=== PATIENT | female | born 1950 | race Two or more races ===

== ENCOUNTER 2017-12-19 22:08 | Inpatient (IN) | payer OTHER, MEDICAID ==
[~2017-12-19] VITALS: Ht 160 cm; Wt 140.3 kg
[2017-12-19 22:49] LABS: Basophils # (auto) 0 uL; Basophils % (auto) 0.5 % (0.0-2.0); Eosinophils # (auto) 0 uL; Eosinophils % (auto) 0.2 % (0.0-7.0); Hematocrit 36.5 % (36.0-46.0); Hemoglobin 11.8 g/dL (12.2-16.2); Lymphocytes # (auto) 0.2 uL; Lymphocytes % (auto) 3.8 % (10.0-50.0); Mean Corpuscular Hemoglobin 28.2 pg (28.0-32.0); Mean Corpuscular Hgb Conc. 32.3 g/dL (32.0-36.0); Mean Corpuscular Volume 87.3 fL (80.0-100.0); Monocytes # (auto) 0.6 uL; Monocytes % (auto) 8.6 % (0.0-12.0); Neutrophils # (auto) 5.6 uL; Neutrophils % (auto) 86.9 % (37.0-80.0); Platelet Count (auto) 173 10^3/uL (140-450); Red Blood Cells 4.18 10^6/uL (4.0-5.20); Red Cell Distribution Width 16.2 % (11.8-14.3); White Blood Cell 6.5 10^3/uL (4.4-10.8)
[2017-12-19 23:11] LABS: Alanine Aminotransferase 12 U/L (13-56); Albumin 3.3 g/dL (3.4-5.0); Anion Gap 8 (5-15); Aspartate Aminotransferase 15 U/L (15-37); Blood Urea Nitrogen 17 mg/dL (7-18); Calcium 8.7 mg/dL (8.5-10.1); Carbon Dioxide 30 mmol/L (21-32); Chloride 97 mmol/L (98-107); GFR African American 85 mL/min; GFR Non-African American 70 mL/min; Glucose 189 mg/dL (74-106); Magnesium 1.6 mg/dL (1.6-2.6); Potassium 3.7 mmol/L (3.5-5.1); Sodium 135 mmol/L (136-145)
[2017-12-19 23:16] LABS: Alkaline Phosphatase 104 U/L (45-117)
[2017-12-20] MEDS ORDERED: FUROSEMIDE 20 MG/2 ML VIAL IV ONE ×2 (00:45→04:45)
[2017-12-20 02:45] LABS: Urine WBC None Seen /hpf (0 - 5)
[2017-12-20 03:04] LABS: Urine Bacteria FEW /hpf (None Seen); Urine Blood Negative /uL (Negative); Urine Mucus FEW (None Seen); Urine Specific Gravity 1.011 (1.001-1.035)
[2017-12-20] MEDS ORDERED: IPRATROPIUM BROM 0.5 MG/2.5ML INH SOL NEB ONE (06:30)
[2017-12-20] MEDS ORDERED: methylPREDNISolone SOD SUCC 125 MG/2 ML VL IV ONE (06:30)
[2017-12-20] MEDS ORDERED: ONDANSETRON HCL 4 MG/2 ML VIAL IV PRN (06:30)
[2017-12-20] MEDS ORDERED: ACETAMINOPHEN 325 MG TAB PO PRN (06:30)
[2017-12-20] MEDS ORDERED: MORPHINE SULFATE 4 MG/ML SYR/VIAL IV PRN (06:30)
[2017-12-20] MEDS ORDERED: DEXTROSE (50%) 50ML SYRG IV PRN (06:30)
[2017-12-20] MEDS ORDERED: ALBUTEROL SULF 2.5 MG/0.5ML(0.5%) NEB SOLN NEB ONE (06:30)
[2017-12-20] MEDS ORDERED: NITROGLYCERIN 0.4 MG SL TAB SL PRN (06:30)
[2017-12-20] MEDS ORDERED: cefTRIAXone 1GM/10ml IVPUSH 10 ML IV ONE (07:30)
[2017-12-20] MEDS: LEVOTHYROXINE SODIUM 50 MCG TAB PO SCH (07:41)
[2017-12-20] MEDS: HYDROcodone-ACET 5/325MG TAB PO PRN ×2 (09:36→20:11)
[2017-12-20] MEDS: ENOXAPARIN SOD 40 MG/0.4 ML SYRINGE SC SCH (09:37)
[2017-12-20] MEDS: amLODIPine BESYLATE 5 MG TAB PO SCH (09:37)
[2017-12-20] MEDS: FAMOTIDINE 20 MG TAB PO SCH ×2 (09:37→22:33)
[2017-12-20] MEDS: METOPROLOL TARTRATE 50 MG TAB PO SCH ×2 (09:37→22:33)
[2017-12-20 09:39] VITALS: BP 137/93
[2017-12-20] MEDS: ACCU-CHEK COMFORT CURVE STRIP VI SCH ×3 (12:07→23:53)
[2017-12-20] MEDS: InsuLIN REG 1unit/0.01ml Soln (100units/ml) SC SCH ×3 (12:18→23:53)
[2017-12-20 13:00] VITALS: BP 133/64
[2017-12-20] MEDS ORDERED: LEVO150T10 PO (15:25)
[2017-12-20] MEDS ORDERED: BACL10TA PO (15:25)
[2017-12-20] MEDS ORDERED: FLUT250M2 IN (15:25)
[2017-12-20] MEDS ORDERED: HYDR-531 PO (15:25)
[2017-12-20] MEDS ORDERED: METO-158 PO (15:25)
[2017-12-20] MEDS ORDERED: NAS17NSL (15:25)
[2017-12-20] MEDS ORDERED: LEVO-28 PO (15:25)
[2017-12-20] MEDS ORDERED: INSLANTI SC (15:25)
[2017-12-20] MEDS ORDERED: AML5T PO (15:25)
[2017-12-20] MEDS ORDERED: ALBU0.084 IN (15:25)
[2017-12-20] MEDS ORDERED: ESOM40CA39 PO (15:25)
[2017-12-20] MEDS ORDERED: ALBUAER3 IN (15:25)
[2017-12-20 17:00] VITALS: BP 140/72
[2017-12-20] MEDS: FUROSEMIDE 40 MG TAB PO SCH (18:28)
[2017-12-20 19:45] VITALS: BP 140/72
[2017-12-20 20:00] VITALS: BP 119/57
[2017-12-20] MEDS: IPRATROPIUM BROM 0.5 MG/2.5ML INH SOL NEB PRN (21:00)
[2017-12-20] MEDS: BUDESONIDE (INHALATION) 0.5 MG/2 ML NEB NEB SCH (21:00)
[2017-12-20] MEDS: ALBUTEROL SULF 2.5 MG/0.5ML(0.5%) NEB SOLN NEB PRN (21:00)
[2017-12-20] MEDS: TEMAZEPAM 15 MG CAP PO PRN (23:53)
[2017-12-21 04:54] VITALS: BP 126/76
[2017-12-21] MEDS: InsuLIN REG 1unit/0.01ml Soln (100units/ml) SC SCH ×3 (06:00→18:15)
[2017-12-21] MEDS: ACCU-CHEK COMFORT CURVE STRIP VI SCH ×3 (06:09→18:15)
[2017-12-21] MEDS: FUROSEMIDE 40 MG TAB PO SCH ×2 (06:09→18:14)
[2017-12-21] MEDS: HYDROcodone-ACET 5/325MG TAB PO PRN ×2 (06:10→22:17)
[2017-12-21 06:56] LABS: Basophils # (auto) 0 uL; Basophils % (auto) 0.1 % (0.0-2.0); Eosinophils # (auto) 0 uL; Hematocrit 36.1 % (36.0-46.0); Hemoglobin 11.6 g/dL (12.2-16.2); Lymphocytes # (auto) 0.4 uL; Mean Corpuscular Hemoglobin 28.1 pg (28.0-32.0); Mean Corpuscular Hgb Conc. 32.2 g/dL (32.0-36.0); Mean Corpuscular Volume 87.1 fL (80.0-100.0); Monocytes # (auto) 0.8 uL; Monocytes % (auto) 13.1 % (0.0-12.0); Neutrophils # (auto) 5.2 uL; Neutrophils % (auto) 80.8 % (37.0-80.0); Nucleated Red Blood Cells % 0.1 %; Platelet Count (auto) 185 10^3/uL (140-450); Red Blood Cells 4.14 10^6/uL (4.0-5.20); Red Cell Distribution Width 15.9 % (11.8-14.3); White Blood Cell 6.4 10^3/uL (4.4-10.8)
[2017-12-21 07:09] LABS: Albumin 3.5 g/dL (3.4-5.0); BUN/Creatinine Ratio 23.7; Calcium 9.1 mg/dL (8.5-10.1); Potassium 3.7 mmol/L (3.5-5.1)
[2017-12-21 07:11] LABS: Bilirubin, Total 0.7 mg/dL (0.2-1.0); Total Protein 7.2 g/dL (6.4-8.2)
[2017-12-21] MEDS: LEVOTHYROXINE SODIUM 50 MCG TAB PO SCH (07:41)
[2017-12-21 09:00] VITALS: BP 128/65
[2017-12-21] MEDS: BUDESONIDE (INHALATION) 0.5 MG/2 ML NEB NEB SCH ×2 (09:27→20:27)
[2017-12-21] MEDS: cefTRIAXone 1GM/10ml IVPUSH 10 ML IV SCH (09:38)
[2017-12-21] MEDS: FAMOTIDINE 20 MG TAB PO SCH ×2 (09:39→22:08)
[2017-12-21] MEDS: METOPROLOL TARTRATE 50 MG TAB PO SCH ×2 (09:39→22:08)
[2017-12-21] MEDS: ENOXAPARIN SOD 40 MG/0.4 ML SYRINGE SC SCH (09:39)
[2017-12-21] MEDS: amLODIPine BESYLATE 5 MG TAB PO SCH (09:40)
[2017-12-21 13:00] VITALS: BP 119/69
[2017-12-21 17:00] VITALS: BP 129/81
[2017-12-21 20:00] VITALS: BP 130/81
[2017-12-21] MEDS: IPRATROPIUM BROM 0.5 MG/2.5ML INH SOL NEB PRN (20:29)
[2017-12-21] MEDS: ALBUTEROL SULF 2.5 MG/0.5ML(0.5%) NEB SOLN NEB PRN (20:29)
[2017-12-21 21:29] VITALS: BP 130/81
[2017-12-22] MEDS: InsuLIN REG 1unit/0.01ml Soln (100units/ml) SC SCH ×5 (00:08→23:28)
[2017-12-22] MEDS: ACCU-CHEK COMFORT CURVE STRIP VI SCH ×5 (00:08→23:28)
[2017-12-22 05:00] VITALS: BP 132/71
[2017-12-22] MEDS: FUROSEMIDE 40 MG TAB PO SCH ×2 (06:22→18:37)
[2017-12-22] MEDS: LEVOTHYROXINE SODIUM 50 MCG TAB PO SCH (06:23)
[2017-12-22 09:00] VITALS: BP 138/85
[2017-12-22] MEDS: IPRATROPIUM BROM 0.5 MG/2.5ML INH SOL NEB PRN ×3 (09:19→23:45)
[2017-12-22] MEDS: BUDESONIDE (INHALATION) 0.5 MG/2 ML NEB NEB SCH ×2 (09:19→18:50)
[2017-12-22] MEDS: ALBUTEROL SULF 2.5 MG/0.5ML(0.5%) NEB SOLN NEB PRN ×3 (09:19→23:45)
[2017-12-22] MEDS: ENOXAPARIN SOD 40 MG/0.4 ML SYRINGE SC SCH (09:55)
[2017-12-22] MEDS: FAMOTIDINE 20 MG TAB PO SCH ×2 (09:55→22:03)
[2017-12-22] MEDS: cefTRIAXone 1GM/10ml IVPUSH 10 ML IV SCH (09:55)
[2017-12-22] MEDS: amLODIPine BESYLATE 5 MG TAB PO SCH (09:56)
[2017-12-22] MEDS: METOPROLOL TARTRATE 50 MG TAB PO SCH ×2 (10:28→22:03)
[2017-12-22] MEDS: HYDROcodone-ACET 5/325MG TAB PO PRN ×2 (12:22→18:38)
[2017-12-22 13:00] VITALS: BP 137/72
[2017-12-22 15:42] LABS: Urine Bacteria NONE SEEN /hpf (None Seen); Urine Blood 3+ /uL (Negative); Urine Specific Gravity 1.021 (1.001-1.035); Urine WBC 544 /hpf (0 - 5); Urine WBC Clumps PRESENT /hpf (None Seen)
[2017-12-22 16:48] VITALS: BP 120/78
[2017-12-22 20:00] VITALS: BP 106/67
[2017-12-22 20:00] LABS: Folate (Folic Acid) 7.2 ng/mL (5.38-24)
[2017-12-22 22:00] VITALS: BP 106/67
[2017-12-22] MEDS: TEMAZEPAM 15 MG CAP PO PRN (23:28)
[2017-12-23 05:00] VITALS: BP 124/86
[2017-12-23] MEDS: BUDESONIDE (INHALATION) 0.5 MG/2 ML NEB NEB SCH (05:38)
[2017-12-23] MEDS: ALBUTEROL SULF 2.5 MG/0.5ML(0.5%) NEB SOLN NEB PRN (05:38)
[2017-12-23] MEDS: IPRATROPIUM BROM 0.5 MG/2.5ML INH SOL NEB PRN (05:38)
[2017-12-23] MEDS: InsuLIN REG 1unit/0.01ml Soln (100units/ml) SC SCH ×2 (06:00→11:36)
[2017-12-23] MEDS: ACCU-CHEK COMFORT CURVE STRIP VI SCH ×3 (06:18→17:39)
[2017-12-23] MEDS: FUROSEMIDE 40 MG TAB PO SCH (06:19)
[2017-12-23] MEDS: LEVOTHYROXINE SODIUM 50 MCG TAB PO SCH (06:43)
[2017-12-23 07:19] LABS: BUN/Creatinine Ratio 31.8; Calcium 8.6 mg/dL (8.5-10.1); Potassium 3.2 mmol/L (3.5-5.1)
[2017-12-23 07:51] LABS: Basophils # (auto) 0 uL; Basophils % (auto) 0.4 % (0.0-2.0); Eosinophils # (auto) 0.2 uL; Eosinophils % (auto) 3.1 % (0.0-7.0); Hematocrit 35.9 % (36.0-46.0); Hemoglobin 11.6 g/dL (12.2-16.2); Lymphocytes # (auto) 0.8 uL; Lymphocytes % (auto) 13.4 % (10.0-50.0); Mean Corpuscular Hemoglobin 28.1 pg (28.0-32.0); Mean Corpuscular Hgb Conc. 32.4 g/dL (32.0-36.0); Mean Corpuscular Volume 86.6 fL (80.0-100.0); Monocytes # (auto) 0.6 uL; Monocytes % (auto) 10.5 % (0.0-12.0); Neutrophils # (auto) 4.3 uL; Neutrophils % (auto) 72.6 % (37.0-80.0); Nucleated Red Blood Cells % 0.2 %; Platelet Count (auto) 176 10^3/uL (140-450); Red Blood Cells 4.15 10^6/uL (4.0-5.20); Red Cell Distribution Width 15.7 % (11.8-14.3)
[2017-12-23] MEDS: cefTRIAXone 1GM/10ml IVPUSH 10 ML IV SCH (08:45)
[2017-12-23 09:17] VITALS: BP 136/70
[2017-12-23] MEDS: HYDROcodone-ACET 5/325MG TAB PO PRN (10:11)
[2017-12-23] MEDS: ENOXAPARIN SOD 40 MG/0.4 ML SYRINGE SC SCH (10:11)
[2017-12-23] MEDS: amLODIPine BESYLATE 5 MG TAB PO SCH (10:12)
[2017-12-23] MEDS: METOPROLOL TARTRATE 50 MG TAB PO SCH (10:12)
[2017-12-23] MEDS: FAMOTIDINE 20 MG TAB PO SCH (10:12)
[2017-12-23 12:00] VITALS: BP 142/64
[2017-12-23 15:26] VITALS: BP 142/64
[2017-12-23 17:00] VITALS: BP 113/47
== END 2017-12-23 18:10 | DRG 189 ==
LOC: EDBD 22:08 → ER 22:08 → TELE 22:09 → TELE-WESTW 12-20 14:23
PROVIDERS: ADMIT Nurse Practitioner; ATTEND Internal Medicine
DX: J96.22 Acute and chronic respiratory failure with hypercapnia (principal); G93.41 Metabolic encephalopathy; E11.42 Type 2 diabetes mellitus with diabetic polyneuropathy; I11.0 Hypertensive heart disease with heart failure; E44.1 Mild protein-calorie malnutrition; I50.32 Chronic diastolic (congestive) heart failure; J44.0 Chronic obstructive pulmonary disease with (acute) lower respiratory infection; J44.1 Chronic obstructive pulmonary disease with (acute) exacerbation; Z68.43 Body mass index [BMI] 50.0-59.9, adult; J96.21 Acute and chronic respiratory failure with hypoxia; E66.01 Morbid (severe) obesity due to excess calories; J20.9 Acute bronchitis, unspecified; M19.90 Unspecified osteoarthritis, unspecified site; Z99.81 Dependence on supplemental oxygen; Z71.3 Dietary counseling and surveillance
CPT/HCPCS: 36415; 70450; 71045; 80048; 80053; 81001; 82607; 82746; 82962; 83735; 83880; 84443; 84484; 85025; 85379; 93306; 94640; 94761; 95819; 96374; 96375; 97163; J1815

== ENCOUNTER 2018-04-10 21:01 | Inpatient (IN) | payer OTHER, MEDICAID ==
[~2018-04-10] VITALS: Ht 170.2 cm; Wt 136.8 kg
[~2018-04-10 21:01] MED LIST: ALBU0.084 IN; ALBUAER3 IN; AML5T PO; BACL10TA PO; ESOM40CA39 PO; FLUT250M2 IN; HYDR-531 PO; INSLANTI SC; LEVO-28 PO; LEVO150T10 PO; METO-158 PO; NAS17NSL
[2018-04-10 21:59] LABS: Basophils # (auto) 0 uL; Basophils % (auto) 0.3 % (0.0-2.0); Eosinophils # (auto) 0.2 uL; Eosinophils % (auto) 2.6 % (0.0-7.0); Hematocrit 35.7 % (36.0-46.0); Lymphocytes # (auto) 0.9 uL; Lymphocytes % (auto) 11.5 % (10.0-50.0); Mean Corpuscular Hemoglobin 29.6 pg (28.0-32.0); Mean Corpuscular Hgb Conc. 33.7 g/dL (32.0-36.0); Mean Corpuscular Volume 87.7 fL (80.0-100.0); Monocytes # (auto) 0.7 uL; Monocytes % (auto) 8.8 % (0.0-12.0); Neutrophils # (auto) 5.8 uL; Neutrophils % (auto) 76.8 % (37.0-80.0); Nucleated Red Blood Cells % 0.1 %; Platelet Count (auto) 172 10^3/uL (140-450); Red Blood Cells 4.07 10^6/uL (4.0-5.20); Red Cell Distribution Width 14.7 % (11.8-14.3); White Blood Cell 7.6 10^3/uL (4.4-10.8)
[2018-04-10 22:15] LABS: Albumin 3.6 g/dL (3.4-5.0); Anion Gap 9 (5-15); BUN/Creatinine Ratio 11.3; Blood Urea Nitrogen 13 mg/dL (7-18); Calcium 8.9 mg/dL (8.5-10.1); Carbon Dioxide 33 mmol/L (21-32); Chloride 95 mmol/L (98-107); GFR African American 60 mL/min; GFR Non-African American 50 mL/min; Glucose 245 mg/dL (74-106); Magnesium 1.5 mg/dL (1.6-2.6); Potassium 3.3 mmol/L (3.5-5.1); Sodium 137 mmol/L (136-145)
[2018-04-10 22:23] LABS: INR 1.05 (0.9-1.15); Partial Thromboplastin Time 27.4 sec (23.78-33.04); Prothrombin Time 11.2 sec (9.27-12.13)
[2018-04-10 22:26] LABS: Alanine Aminotransferase 11 U/L (13-56); Alkaline Phosphatase 108 U/L (45-117); Aspartate Aminotransferase 12 U/L (15-37); Bilirubin, Total 0.6 mg/dL (0.2-1.0); Total Protein 7.2 g/dL (6.4-8.2)
[2018-04-10 22:59] LABS: Urine Bacteria MOD /hpf (None Seen); Urine Blood Negative /uL (Negative); Urine Hyaline Cast FEW /lpf (0 - 2); Urine Mucus FEW (None Seen); Urine Specific Gravity 1.023 (1.001-1.035); Urine WBC 21 /hpf (0 - 5)
[2018-04-10] MEDS ORDERED: FUROSEMIDE 20 MG/2 ML VIAL IV ONE (23:00)
[2018-04-10] MEDS ORDERED: ONDANSETRON HCL 4 MG/2 ML VIAL IV ONE (23:00)
[2018-04-10] MEDS ORDERED: MEPERIDINE HCL (50 MG/ML) 1 ML VIAL IV ONE (23:00)
[2018-04-11] MEDS ORDERED: MORPHINE SULFATE 8mg/ml INJ SDV IV PRN (07:15)
[2018-04-11] MEDS ORDERED: NITROGLYCERIN 0.4 MG SL TAB SL PRN (07:15)
[2018-04-11] MEDS ORDERED: DEXTROSE (50%) 50ML SYRG IV PRN (07:15)
[2018-04-11] MEDS ORDERED: POTASSIUM CHL 20 Meq TABLET PO ONE (07:15)
[2018-04-11] MEDS ORDERED: LISINOPRIL 5 MG TAB PO ONE (07:30)
[2018-04-11 07:41] LABS: Basophils # (auto) 0 uL; Basophils % (auto) 0.5 % (0.0-2.0); Eosinophils # (auto) 0.2 uL; Eosinophils % (auto) 2.8 % (0.0-7.0); Hematocrit 33.8 % (36.0-46.0); Lymphocytes # (auto) 0.8 uL; Mean Corpuscular Hemoglobin 28.7 pg (28.0-32.0); Mean Corpuscular Hgb Conc. 32.7 g/dL (32.0-36.0); Mean Corpuscular Volume 87.8 fL (80.0-100.0); Monocytes # (auto) 0.6 uL; Neutrophils # (auto) 4.9 uL; Neutrophils % (auto) 75.7 % (37.0-80.0); Platelet Count (auto) 156 10^3/uL (140-450); Red Blood Cells 3.85 10^6/uL (4.0-5.20); Red Cell Distribution Width 14.9 % (11.8-14.3); White Blood Cell 6.5 10^3/uL (4.4-10.8)
[2018-04-11 07:51] LABS: BUN/Creatinine Ratio 12.4; Calcium 8.6 mg/dL (8.5-10.1); Potassium 3.6 mmol/L (3.5-5.1)
[2018-04-11] MEDS: LEVOTHYROXINE SODIUM 50 MCG TAB PO SCH (08:31)
[2018-04-11] MEDS: INSULIN LANTUS (GLARGINE) 1 /0.01ml (100units/ml) SC SCH (08:39)
[2018-04-11 09:00] VITALS: BP 138/75
[2018-04-11] MEDS: cefTRIAXone 1GM/10ml IVPUSH 10 ML IV SCH (09:06)
[2018-04-11 09:15] VITALS: BP 138/75
[2018-04-11] MEDS ORDERED: FUROSEMIDE 40 MG/4 ML VIAL IV ONE (10:00)
[2018-04-11] MEDS: METOPROLOL TARTRATE 50 MG TAB PO SCH ×2 (10:07→20:59)
[2018-04-11] MEDS: ACCU-CHEK COMFORT CURVE STRIP VI SCH ×3 (12:14→20:59)
[2018-04-11] MEDS: InsuLIN REG 1unit/0.01ml Soln (100units/ml) SC SCH ×3 (12:14→21:11)
[2018-04-11 13:00] VITALS: BP 119/72
[2018-04-11] MEDS: methylPREDNISolone SOD SUCC 40 MG/ML VL IV SCH ×2 (14:37→20:58)
[2018-04-11] MEDS: PANTOPRAZOLE 40 MG TAB PO SCH (14:37)
[2018-04-11] MEDS: HYDROcodone-ACET 10/325MG TAB PO PRN ×2 (14:38→20:58)
[2018-04-11] MEDS: ALBUTEROL SULF 2.5 MG/0.5ML(0.5%) NEB SOLN NEB PRN (14:55)
[2018-04-11 15:33] VITALS: BP 119/72
[2018-04-11] MEDS ORDERED: FUROSEMIDE 20 MG TAB PO SCH (18:00)
[2018-04-11 22:19] VITALS: BP 139/73
[2018-04-12 05:01] VITALS: BP 146/75
[2018-04-12] MEDS ORDERED: FUROSEMIDE 20 MG TAB PO SCH (06:00)
[2018-04-12] MEDS: LEVOTHYROXINE SODIUM 50 MCG TAB PO SCH (06:05)
[2018-04-12] MEDS: HYDROcodone-ACET 10/325MG TAB PO PRN ×3 (06:05→23:00)
[2018-04-12] MEDS: ACCU-CHEK COMFORT CURVE STRIP VI SCH ×4 (06:06→21:12)
[2018-04-12] MEDS: INSULIN LANTUS (GLARGINE) 1 /0.01ml (100units/ml) SC SCH (06:06)
[2018-04-12] MEDS: InsuLIN REG 1unit/0.01ml Soln (100units/ml) SC SCH ×4 (06:06→21:42)
[2018-04-12 06:43] LABS: Basophils # (auto) 0 uL; Basophils % (auto) 0.2 % (0.0-2.0); Eosinophils # (auto) 0 uL; Eosinophils % (auto) 0.1 % (0.0-7.0); Hematocrit 34.5 % (36.0-46.0); Hemoglobin 11.4 g/dL (12.2-16.2); Lymphocytes # (auto) 0.3 uL; Lymphocytes % (auto) 4.7 % (10.0-50.0); Mean Corpuscular Hemoglobin 28.7 pg (28.0-32.0); Mean Corpuscular Volume 86.9 fL (80.0-100.0); Monocytes # (auto) 0.1 uL; Monocytes % (auto) 1.5 % (0.0-12.0); Neutrophils # (auto) 5.9 uL; Neutrophils % (auto) 93.5 % (37.0-80.0); Platelet Count (auto) 147 10^3/uL (140-450); Red Blood Cells 3.97 10^6/uL (4.0-5.20); Red Cell Distribution Width 14.6 % (11.8-14.3); White Blood Cell 6.4 10^3/uL (4.4-10.8)
[2018-04-12 07:04] LABS: Calcium 9.4 mg/dL (8.5-10.1); Magnesium 1.6 mg/dL (1.6-2.6)
[2018-04-12 07:05] LABS: BUN/Creatinine Ratio 17.4
[2018-04-12 08:00] VITALS: BP 119/72
[2018-04-12 09:00] VITALS: BP 141/72
[2018-04-12] MEDS: cefTRIAXone 1GM/10ml IVPUSH 10 ML IV SCH (09:03)
[2018-04-12] MEDS: PANTOPRAZOLE 40 MG TAB PO SCH ×2 (09:03→21:12)
[2018-04-12] MEDS: METOPROLOL TARTRATE 50 MG TAB PO SCH ×2 (09:04→21:11)
[2018-04-12] MEDS: methylPREDNISolone SOD SUCC 40 MG/ML VL IV SCH (09:04)
[2018-04-12] MEDS: DOCUSATE SOD 100 MG CAP PO PRN ×2 (09:20→21:11)
[2018-04-12] MEDS: ALBUTEROL SULF 2.5 MG/0.5ML(0.5%) NEB SOLN NEB PRN (12:11)
[2018-04-12 12:19] VITALS: BP 142/73
[2018-04-12] MEDS: APIXABAN 5 MG TAB PO SCH ×2 (14:14→21:11)
[2018-04-12] MEDS: ONDANSETRON HCL 4 MG/2 ML VIAL IV PRN ×2 (14:15→21:13)
[2018-04-12 17:28] VITALS: BP 143/80
[2018-04-12 21:56] VITALS: BP 130/64
[2018-04-13 04:00] VITALS: BP 135/86
[2018-04-13] MEDS: LEVOTHYROXINE SODIUM 50 MCG TAB PO SCH (05:53)
[2018-04-13] MEDS: INSULIN LANTUS (GLARGINE) 1 /0.01ml (100units/ml) SC SCH (05:54)
[2018-04-13] MEDS: HYDROcodone-ACET 10/325MG TAB PO PRN (05:54)
[2018-04-13] MEDS: InsuLIN REG 1unit/0.01ml Soln (100units/ml) SC SCH ×3 (05:54→17:00)
[2018-04-13] MEDS: ACCU-CHEK COMFORT CURVE STRIP VI SCH ×3 (05:54→17:53)
[2018-04-13 08:00] VITALS: BP 123/70
[2018-04-13 08:51] VITALS: BP 141/78
[2018-04-13] MEDS: cefTRIAXone 1GM/10ml IVPUSH 10 ML IV SCH (08:55)
[2018-04-13] MEDS: ONDANSETRON HCL 4 MG/2 ML VIAL IV PRN (12:11)
[2018-04-13] MEDS ORDERED: EZ-GAS II GRANULES (RADIOLOGY USE) PO ONE (12:42)
[2018-04-13] MEDS ORDERED: GASTROGRAFIN 120 ML SOL ONE (12:42)
[2018-04-13 13:00] VITALS: BP 144/80
[2018-04-13] MEDS ORDERED: AMOXICILLIN/CLAVUL 875 MG TAB PO ONE (13:45)
[2018-04-13] MEDS: APIXABAN 5 MG TAB PO SCH (14:24)
[2018-04-13] MEDS: METOPROLOL TARTRATE 50 MG TAB PO SCH (14:25)
[2018-04-13] MEDS: PANTOPRAZOLE 40 MG TAB PO SCH (14:25)
[2018-04-13 16:02] VITALS: BP 144/80
== END 2018-04-13 18:30 | disposition home or self-care (01) | DRG 291 ==
LOC: ER 21:01 → EDBD 21:01 → TELE 21:02 → TELE-EAST 04-11 09:15
PROVIDERS: ADMIT Nurse Practitioner Family; ATTEND Internal Medicine
DX: I11.0 Hypertensive heart disease with heart failure (principal); J96.20 Acute and chronic respiratory failure, unspecified whether with hypoxia or hypercapnia; Z68.42 Body mass index [BMI] 45.0-49.9, adult; I48.0 Paroxysmal atrial fibrillation; I50.43 Acute on chronic combined systolic (congestive) and diastolic (congestive) heart failure; E87.6 Hypokalemia; E03.9 Hypothyroidism, unspecified; E11.9 Type 2 diabetes mellitus without complications; E66.01 Morbid (severe) obesity due to excess calories; G89.4 Chronic pain syndrome; K21.9 Gastro-esophageal reflux disease without esophagitis; Z79.4 Long term (current) use of insulin; Z99.81 Dependence on supplemental oxygen; Z71.3 Dietary counseling and surveillance; I50.9 Heart failure, unspecified
CPT/HCPCS: 36415; 71045; 74176; 74247; 80048; 80053; 81001; 82962; 83735; 83880; 84443; 84484; 85025; 85379; 85610; 85730; 87081; 87086; 93005; 94640; 96372; 96374; 96375; J1815; J2405

== ENCOUNTER 2019-07-30 01:57 | Inpatient (IN) | payer OTHER, MEDICAID ==
[~2019-07-30] VITALS: Ht 167.6 cm; Wt 123.3 kg
[~2019-07-30 01:57] MED LIST changes: -ESOM40CA39 PO; -LEVO-28 PO
[2019-07-30 06:32] LABS: Basophils # (auto) 0 uL; Basophils % (auto) 0.4 % (0.0-2.0); Eosinophils # (auto) 0.1 uL; Eosinophils % (auto) 1.7 % (0.0-7.0); Hematocrit 33.6 % (36.0-46.0); Hemoglobin 11.2 g/dL (12.2-16.2); Lymphocytes # (auto) 0.9 uL; Lymphocytes % (auto) 13.7 % (10.0-50.0); Mean Corpuscular Hemoglobin 27.3 pg (28.0-32.0); Mean Corpuscular Hgb Conc. 33.2 g/dL (32.0-36.0); Mean Corpuscular Volume 82.1 fL (80.0-100.0); Monocytes # (auto) 0.5 uL; Monocytes % (auto) 7.3 % (0.0-12.0); Neutrophils % (auto) 76.9 % (37.0-80.0); Nucleated Red Blood Cells % 0.1 %; Platelet Count (auto) 179 10^3/uL (140-450); Red Blood Cells 4.09 10^6/uL (4.0-5.20); Red Cell Distribution Width 14.4 % (11.8-14.3); White Blood Cell 6.5 10^3/uL (4.4-10.8)
[2019-07-30 06:38] LABS: Albumin 3.3 g/dL (3.4-5.0); Calcium 8.9 mg/dL (8.5-10.1); Potassium 4.2 mmol/L (3.5-5.1)
[2019-07-30 06:45] LABS: BUN/Creatinine Ratio 24.1; Bilirubin, Total 0.3 mg/dL (0.2-1.0); CRP High Sensitivity 0.89 mg/dL (< 0.3)
[2019-07-30] MEDS ORDERED: VANCOMYCIN 1GM/250ML 250 ML IV ONE (08:00)
[2019-07-30] MEDS ORDERED: hydrALAZINE HCL 20 MG/ML VL IV PRN (10:30)
[2019-07-30] MEDS ORDERED: VANCOMYCIN PER PHARMACY IV SCH (10:30)
[2019-07-30] MEDS ORDERED: ACETAMINOPHEN 500 MG TAB PO PRN (10:30)
[2019-07-30] MEDS ORDERED: MORPHINE SULF INJ 2 MG/ML SYRINGE 1ML IV PRN (10:30)
[2019-07-30] MEDS ORDERED: NITROGLYCERIN 0.4 MG SL TAB SL PRN (10:30)
[2019-07-30] MEDS ORDERED: DEXTROSE (50%) 50ML SYRG IV PRN (10:30)
[2019-07-30] MEDS ORDERED: LISINOPRIL 10 MG TAB PO ONE (10:45)
[2019-07-30] MEDS ORDERED: BUDESONIDE (INHALATION) 0.5 MG/2 ML NEB NEB ONE (10:45)
[2019-07-30] MEDS ORDERED: ASPirin-EC 81 mg tab PO ONE (10:45)
[2019-07-30] MEDS ORDERED: IPRATROPIUM BROM 0.5 MG/2.5ML INH SOL NEB PRN (10:45)
[2019-07-30] MEDS ORDERED: FAMOTIDINE 20 MG TAB PO ONE (10:45)
[2019-07-30] MEDS ORDERED: METOPROLOL TARTRATE 25 MG TAB PO ONE (10:45)
[2019-07-30] MEDS: HYDROcodone-ACET 5/325MG TAB PO PRN ×3 (10:46→23:16)
[2019-07-30] MEDS: ACCU-CHEK COMFORT CURVE STRIP VI SCH ×3 (11:30→22:24)
[2019-07-30] MEDS: InsuLIN REG 1unit/0.01ml Soln (100units/ml) SC SCH ×3 (11:30→22:24)
[2019-07-30 12:00] VITALS: BP 120/49
[2019-07-30] MEDS: VANCOMYCIN 1,250 MG in D5W 5% 250 ML IV SCH (12:00)
[2019-07-30 12:36] VITALS: BP 120/49
[2019-07-30] MEDS ORDERED: PNEUMOCOCCAL VACC POLYS 25 MCG/0.5 ML VIAL IM ONE (13:00)
[2019-07-30] MEDS ORDERED: INFLUENZA QUAD 2019-2020 0.5ml SYRG IM ONE (13:00)
[2019-07-30] MEDS ORDERED: FURO40TA4 PO (13:06)
[2019-07-30] MEDS ORDERED: FLUT250M2 INH (13:06)
[2019-07-30] MEDS ORDERED: LEVO150T58 PO (13:06)
[2019-07-30] MEDS ORDERED: ALBU1AER4 IN (13:06)
[2019-07-30] MEDS ORDERED: POTA10TA51 PO (13:06)
[2019-07-30] MEDS ORDERED: INSLANTI SC (13:06)
[2019-07-30] MEDS ORDERED: ATOR20TA50 PO (13:06)
[2019-07-30] MEDS ORDERED: GABA300C10 PO (13:06)
[2019-07-30] MEDS ORDERED: OMEP20TA PO (13:06)
[2019-07-30] MEDS ORDERED: BUSP5TAB51 PO (13:06)
[2019-07-30] MEDS: metroNIDAZOLE 500MG/100ML 100 ML IV SCH ×2 (14:00→22:23)
[2019-07-30 15:49] VITALS: BP 122/47
[2019-07-30 17:00] VITALS: BP 130/60
[2019-07-30] MEDS: MORPHINE SULF INJ 2 MG/ML SYRINGE 1ML IV PRN (21:09)
[2019-07-30 22:00] VITALS: BP 116/57
[2019-07-30] MEDS: ATORVASTATIN 20 MG TAB PO SCH (22:23)
[2019-07-30] MEDS: METOPROLOL TARTRATE 25 MG TAB PO SCH (22:23)
[2019-07-30] MEDS: FAMOTIDINE 20 MG TAB PO SCH (22:24)
[2019-07-31] MEDS: MORPHINE SULF INJ 2 MG/ML SYRINGE 1ML IV PRN ×2 (01:31→20:08)
[2019-07-31 05:03] VITALS: BP 119/52
[2019-07-31] MEDS: metroNIDAZOLE 500MG/100ML 100 ML IV SCH ×2 (05:50→15:30)
[2019-07-31] MEDS: ACCU-CHEK COMFORT CURVE STRIP VI SCH ×4 (06:17→22:00)
[2019-07-31] MEDS: InsuLIN REG 1unit/0.01ml Soln (100units/ml) SC SCH ×4 (06:25→22:00)
[2019-07-31 06:37] LABS: Basophils # (auto) 0 uL; Basophils % (auto) 0.5 % (0.0-2.0); Eosinophils # (auto) 0.2 uL; Eosinophils % (auto) 2.3 % (0.0-7.0); Hematocrit 31.8 % (36.0-46.0); Hemoglobin 10.8 g/dL (12.2-16.2); Lymphocytes % (auto) 15.7 % (10.0-50.0); Mean Corpuscular Hgb Conc. 33.9 g/dL (32.0-36.0); Mean Corpuscular Volume 82.5 fL (80.0-100.0); Monocytes # (auto) 0.5 uL; Monocytes % (auto) 7.8 % (0.0-12.0); Neutrophils # (auto) 4.9 uL; Neutrophils % (auto) 73.7 % (37.0-80.0); Platelet Count (auto) 159 10^3/uL (140-450); Red Blood Cells 3.85 10^6/uL (4.0-5.20); Red Cell Distribution Width 14.1 % (11.8-14.3); White Blood Cell 6.6 10^3/uL (4.4-10.8)
[2019-07-31 06:50] LABS: Partial Thromboplastin Time 27.2 sec (23.64-32.05)
[2019-07-31 07:06] LABS: BUN/Creatinine Ratio 25.4; Potassium 4.6 mmol/L (3.5-5.1)
[2019-07-31] MEDS ORDERED: ADENOSINE 105 MG in GIVE UN-DILUTED 0 ML IV STA (08:07)
[2019-07-31 09:00] VITALS: BP 151/67
--- NOTE | 2019-07-31 09:06 | NUR ---
Hospitalist paged regarding patient is requesting anxiety medication. Awaiting to call back.
--- NOTE | 2019-07-31 09:30 | NUR ---
Opening Shift Note Assumed care of patient, awake and alert. No S/S of distress/SOB or pain. Instructed on POC and to call for assist PRN, will continue to monitor for changes Q1hr and PRN.
[2019-07-31] MEDS: LISINOPRIL 10 MG TAB PO SCH (10:00)
[2019-07-31] MEDS: ASPirin-EC 81 mg tab PO SCH (10:00)
[2019-07-31] MEDS: FAMOTIDINE 20 MG TAB PO SCH (10:00)
[2019-07-31] MEDS: METOPROLOL TARTRATE 25 MG TAB PO SCH ×2 (10:00→22:00)
[2019-07-31] MEDS: HYDROcodone-ACET 5/325MG TAB PO PRN (10:46)
[2019-07-31] MEDS: VANCOMYCIN 1,250 MG in D5W 5% 250 ML IV SCH (12:00)
[2019-07-31] MEDS: cefTRIAXone 1GM/50ML D5W 50 ML IV ONE ×2 (12:03→18:24)
[2019-07-31 13:00] VITALS: BP 156/77
--- NOTE | 2019-07-31 14:06 | NUR ---
Dr. Darnell Espinoza regarding patient is requesting Xanax and Per Jb (MRI) said patient cannot flex her foot , recommended to get bone scan instated of MRI to left foot. Awaiting to call back.
[2019-07-31 14:22] VITALS: BP 145/83
[2019-07-31] MEDS ORDERED: LORazepam 2MG/ML-1ML VIAL IM ONE (14:30)
--- NOTE | 2019-07-31 16:45 | NUR ---
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
[2019-07-31 17:00] VITALS: BP 123/69
--- NOTE | 2019-07-31 17:01 | NUR ---
assessment re: ss consult needs extra help at home Patient is a 68 year old female who is alert and oriented. Patients cognitive abilities are intact. Prior to admission patient lived home with roommates and functioned with assistance. Per patient she will return home to her prior living arrangements post discharge and family will transport her home. Patient informed me she has home 02, fww, and a wheelchair for home use. Patients PCP is Dr Fanny An. Patient informed me she does not qualify for SS. Patient informed me she makes too much money and does not want to pay the share of cost. I have provided patient with private pay resources for caregivers [facility] [employer] and [facility] [employer]. Patient may also benefit for home health safety, PT and home health aide on discharge. I informed patient she has a right to speak to a manager social media regarding all care. I informed patient she has a right to participate in any and all discharge planning. Patient has a POA and advanced directive. Patient verbalized understanding and agreed to discharge plan home. Addendum: 07/31/19 at 1704 by Rosa HASSAN Amended: Links added.
[2019-07-31] MEDS ORDERED: GABAPENTIN 300 MG CAP PO SCH (18:00)
[2019-07-31] MEDS ORDERED: cefTRIAXone 1GM/50ML D5W 50 ML IV ONE (18:00)
[2019-07-31] MEDS: BUDESONIDE (INHALATION) 0.5 MG/2 ML NEB NEB SCH (18:21)
[2019-07-31] MEDS: ALBUTEROL SULF 2.5 MG/0.5ML(0.5%) NEB SOLN NEB PRN (18:22)
[2019-07-31] MEDS: SODIUM CHLORIDE 0.9% 1,000 ML IV SCH (18:26)
[2019-07-31 21:45] VITALS: BP 140/61
[2019-07-31] MEDS: ATORVASTATIN 20 MG TAB PO SCH (21:59)
[2019-07-31] MEDS: busPIRone HCL 10 MG TAB PO SCH (21:59)
[2019-08-01] MEDS: BUDESONIDE (INHALATION) 0.5 MG/2 ML NEB NEB SCH ×2 (00:33→05:57)
[2019-08-01] MEDS: HYDROcodone-ACET 5/325MG TAB PO PRN ×3 (03:59→18:23)
[2019-08-01 05:07] VITALS: BP 133/66
[2019-08-01] MEDS: ALBUTEROL SULF 2.5 MG/0.5ML(0.5%) NEB SOLN NEB PRN (05:57)
[2019-08-01 06:12] LABS: Basophils # (auto) 0 uL; Basophils % (auto) 0.4 % (0.0-2.0); Eosinophils # (auto) 0.1 uL; Eosinophils % (auto) 1.5 % (0.0-7.0); Hematocrit 31.5 % (36.0-46.0); Hemoglobin 10.6 g/dL (12.2-16.2); Lymphocytes # (auto) 0.6 uL; Lymphocytes % (auto) 8.6 % (10.0-50.0); Mean Corpuscular Hemoglobin 27.7 pg (28.0-32.0); Mean Corpuscular Hgb Conc. 33.8 g/dL (32.0-36.0); Monocytes # (auto) 0.6 uL; Monocytes % (auto) 7.6 % (0.0-12.0); Neutrophils % (auto) 81.9 % (37.0-80.0); Platelet Count (auto) 148 10^3/uL (140-450); Red Blood Cells 3.84 10^6/uL (4.0-5.20); Red Cell Distribution Width 14.5 % (11.8-14.3); White Blood Cell 7.3 10^3/uL (4.4-10.8)
[2019-08-01 06:32] LABS: Potassium 4.4 mmol/L (3.5-5.1)
[2019-08-01 06:46] LABS: BUN/Creatinine Ratio 24.4; Calcium 8.8 mg/dL (8.5-10.1)
[2019-08-01] MEDS: ACCU-CHEK COMFORT CURVE STRIP VI SCH (06:50)
[2019-08-01] MEDS: InsuLIN REG 1unit/0.01ml Soln (100units/ml) SC SCH ×2 (06:51→12:33)
[2019-08-01] MEDS ORDERED: LEVOTHYROXINE SODIUM 50 MCG TAB PO SCH (07:00)
[2019-08-01] MEDS: SODIUM CHLORIDE 0.9% 1,000 ML IV SCH (07:05)
--- NOTE | 2019-08-01 07:20 | NUR ---
report received from veronica rn pt stable left for bottle label inspector [id number]
[2019-08-01] MEDS ORDERED: VERAPAMIL 2.5MG/ML INJ 2ML VIAL IV ONE (07:22)
[2019-08-01] MEDS ORDERED: ANGIOMAX 250 MG VIAL IV ONE (07:22)
[2019-08-01] MEDS ORDERED: MIDAZOLAM HCL 1MG/1ML-2 ML VIAL ONE (07:23)
[2019-08-01] MEDS ORDERED: SODIUM CHL 0.9% 0 ML ONE (07:23)
[2019-08-01] MEDS ORDERED: fentaNYL CITRATE 100 MCG/2 ML VL ONE (07:23)
[2019-08-01] MEDS ORDERED: IODIXANOL 320MG/ML 100ML BTL IV ONE (07:31)
[2019-08-01] MEDS ORDERED: LIDOCAINE 2%HCL (LOCAL ANESTH.) INJ 20ML MDV ONE (07:31)
[2019-08-01] MEDS ORDERED: HEPARIN IN NS 1000Units/500mL 1,500 ML ONE (07:31)
[2019-08-01] MEDS ORDERED: HEPARIN SODIUM (PORCINE) 5000 UNITS/ML 1ML VIAL ONE (08:04)
[2019-08-01] MEDS ORDERED: cefTRIAXone 1GM/50ML D5W 50 ML IV SCH (09:00)
[2019-08-01 09:10] VITALS: BP 130/74
[2019-08-01] MEDS: ASPirin-EC 81 mg tab PO SCH (10:00)
[2019-08-01] MEDS ORDERED: FUROSEMIDE 40 MG TAB PO SCH (10:00)
[2019-08-01] MEDS ORDERED: PANTOPRAZOLE 40 MG TAB PO SCH (10:00)
[2019-08-01] MEDS: busPIRone HCL 10 MG TAB PO SCH (10:19)
--- NOTE | 2019-08-01 12:47 | NUR ---
TRANSFER : transfer packet faxed to [facility]
[2019-08-01 13:00] VITALS: BP 135/71
--- NOTE | 2019-08-01 13:02 | NUR ---
Auths: Auth for [facility] is [id number] and auth for [facility] is [id number] per Maryse at [facility]. [phone]
--- NOTE | 2019-08-01 13:08 | NUR ---
Spoke with Orlin at [facility], [facility] is set up on "will call" for this pt
--- NOTE | 2019-08-01 14:21 | NUR ---
TRANSFER: Kasisdy from [facility] stated they have accepting MD of KOSTA MITCHELL. Kassidy will get bed and call me back with rm # and # to call report
[2019-08-01] MEDS: LISINOPRIL 10 MG TAB PO SCH (14:52)
[2019-08-01] MEDS: METOPROLOL TARTRATE 25 MG TAB PO SCH (14:54)
[2019-08-01 17:00] VITALS: BP 120/68
== END 2019-08-01 18:30 | disposition short-term general hospital (02) | DRG 286 ==
LOC: EDBD 01:57 → ER 02:04 → TELE 02:05 → TELE-EAST 11:24
PROVIDERS: ADMIT Emergency Medicine; ATTEND Internal Medicine
PROC: 4A023N7 Measurement of Cardiac Sampling and Pressure, Left Heart, Percutaneous Approach (ICD-10-PCS; principal; 2019-08-01)
PROC: B211YZZ Fluoroscopy of Multiple Coronary Arteries using Other Contrast (ICD-10-PCS; 2019-08-01)
DX: I25.110 Atherosclerotic heart disease of native coronary artery with unstable angina pectoris (principal); I50.23 Acute on chronic systolic (congestive) heart failure; I13.0 Hypertensive heart and chronic kidney disease with heart failure and stage 1 through stage 4 chronic kidney disease, or unspecified chronic kidney disease; N17.9 Acute kidney failure, unspecified; Z68.41 Body mass index [BMI] 40.0-44.9, adult; L03.115 Cellulitis of right lower limb; L03.116 Cellulitis of left lower limb; R07.89 Other chest pain; I42.9 Cardiomyopathy, unspecified; I25.10 Atherosclerotic heart disease of native coronary artery without angina pectoris; N18.3 Chronic kidney disease, stage 3 (moderate); D64.9 Anemia, unspecified; J44.9 Chronic obstructive pulmonary disease, unspecified; I48.91 Unspecified atrial fibrillation; L97.529 Non-pressure chronic ulcer of other part of left foot with unspecified severity; E11.42 Type 2 diabetes mellitus with diabetic polyneuropathy; E11.621 Type 2 diabetes mellitus with foot ulcer; E03.9 Hypothyroidism, unspecified; I27.20 Pulmonary hypertension, unspecified; E11.40 Type 2 diabetes mellitus with diabetic neuropathy, unspecified; E11.22 Type 2 diabetes mellitus with diabetic chronic kidney disease; K21.9 Gastro-esophageal reflux disease without esophagitis; E11.51 Type 2 diabetes mellitus with diabetic peripheral angiopathy without gangrene; E66.01 Morbid (severe) obesity due to excess calories; E78.5 Hyperlipidemia, unspecified; I45.10 Unspecified right bundle-branch block; L97.509 Non-pressure chronic ulcer of other part of unspecified foot with unspecified severity; Z79.4 Long term (current) use of insulin; Z79.51 Long term (current) use of inhaled steroids; Z79.899 Other long term (current) drug therapy; Z82.49 Family history of ischemic heart disease and other diseases of the circulatory system
CPT/HCPCS: 36415; 71045; 73630; 78452; 80048; 80053; 82550; 82962; 83036; 83605; 83735; 83880; 84443; 84484; 85025; 85610; 85652; 85730; 86141; 93017; 93306; 93458; 93926; 94640; 96365; 96367; 96372; G0378; J0153; J0696; J1815; J2250; J3490; J7060; Q9967

== ENCOUNTER 2020-09-15 20:33 | Inpatient (IN) | payer OTHER, MEDICAID ==
[~2020-09-15] VITALS: Ht 167.6 cm; Wt 125.5 kg
[~2020-09-15 20:33] MED LIST changes: +ALBU1AER4 IN; +ATOR20TA50 PO; +BUSP5TAB51 PO; +FLUT250M2 INH; +FURO40TA4 PO; +GABA300C10 PO; -LEVO150T10 PO; +LEVO150T58 PO; +OMEP20TA PO; +POTA10TA51 PO
[2020-09-15 22:49] LABS: Basophils # (auto) 0 10 ^3/uL (0-0.2); Basophils % (auto) 0.3 % (0.0-2.0); Eosinophils # (auto) 0.1 10 ^3/uL (0-0.8); Eosinophils % (auto) 1.3 % (0.0-7.0); Hematocrit 32.6 % (36.0-46.0); Hemoglobin 10.7 g/dL (12.2-16.2); Lymphocytes # (auto) 0.9 10 ^3/uL (0.4-5.4); Lymphocytes % (auto) 9.1 % (10.0-50.0); Mean Corpuscular Hemoglobin 27.6 pg (28.0-32.0); Mean Corpuscular Hgb Conc. 32.6 g/dL (32.0-36.0); Mean Corpuscular Volume 84.6 fL (80.0-100.0); Monocytes # (auto) 0.7 10 ^3/uL (0-1.3); Monocytes % (auto) 7.5 % (0.0-12.0); Neutrophils # (auto) 8.2 10 ^3/uL (1.6-8.6); Neutrophils % (auto) 81.8 % (37.0-80.0); Platelet Count (auto) 192 10^3/uL (140-450); Red Blood Cells 3.86 10^6/uL (4.0-5.20); Red Cell Distribution Width 14.7 % (11.8-14.3)
[2020-09-15 23:18] LABS: Albumin 3.5 g/dL (3.4-5.0); BUN/Creatinine Ratio 20.4; Calcium 9.1 mg/dL (8.5-10.1); Magnesium 1.8 mg/dL (1.6-2.6); Potassium 4.2 mmol/L (3.5-5.1)
[2020-09-15 23:20] LABS: Bilirubin, Total 0.6 mg/dL (0.2-1.0); Total Protein 7.3 g/dL (6.4-8.2)
[2020-09-16 01:17] LABS: Urine Bacteria FEW /hpf (None Seen); Urine Blood Negative /uL (Negative); Urine Hyaline Cast FEW /lpf (0 - 2); Urine Mucus FEW (None Seen); Urine Specific Gravity 1.019 (1.001-1.035); Urine WBC 30 /hpf (0 - 5)
[2020-09-16] MEDS ORDERED: MORPHINE SULFATE 4 MG/ML SYR/VIAL IV ONE (02:15)
[2020-09-16] MEDS ORDERED: ONDANSETRON HCL 4 MG/2 ML VIAL IV ONE (02:15)
[2020-09-16] MEDS ORDERED: AZITHROMYCIN 500MG/ 250ML 250 ML IV ONE (02:45)
[2020-09-16] MEDS ORDERED: cefTRIAXone 1GM/50ML D5W 50 ML IV ONE ×3 (02:45→14:52)
[2020-09-16] MEDS ORDERED: ALBUTEROL SULF 2.5 MG/0.5ML(0.5%) NEB SOLN NEB PRN (04:45)
[2020-09-16] MEDS ORDERED: NITROGLYCERIN 0.4 MG SL TAB SL PRN (04:45)
[2020-09-16] MEDS ORDERED: ONDANSETRON HCL 4 MG/2 ML VIAL IV PRN (04:45)
[2020-09-16] MEDS ORDERED: MORPHINE SULF INJ 2 MG/ML SYRINGE 1ML IV PRN (04:45)
[2020-09-16] MEDS ORDERED: ENOXAPARIN SOD 100 MG/1 ML SYRINGE SC ONE (04:45)
[2020-09-16] MEDS ORDERED: ACETAMINOPHEN 325 MG TAB PO PRN (04:45)
[2020-09-16] MEDS ORDERED: DEXTROSE (50%) 50ML SYRG IV PRN (04:45)
[2020-09-16] MEDS ORDERED: PROMETHAZINE HCL 25 MG/ML 1ML IV ONE (05:15)
[2020-09-16] MEDS ORDERED: ENOXAPARIN SOD 120 MG/0.8 ML SYRINGE SC ONE (05:36)
[2020-09-16] MEDS: FUROSEMIDE 40 MG TAB PO SCH ×2 (06:24→19:03)
[2020-09-16] MEDS: LEVOTHYROXINE SODIUM 50 MCG TAB PO SCH (06:26)
[2020-09-16] MEDS: ACCU-CHEK COMFORT CURVE STRIP VI SCH ×4 (07:30→21:42)
[2020-09-16] MEDS: InsuLIN REG 1unit/0.01ml Soln (100units/ml) SC SCH ×4 (07:35→21:43)
[2020-09-16 08:41] LABS: INR 1.15 (0.9-1.15)
[2020-09-16] MEDS ORDERED: ASPirin 81 mg TAB PO SCH (10:00)
[2020-09-16] MEDS: levoFLOXacin 250MG 50 ML IV SCH (10:00)
[2020-09-16] MEDS: amLODIPine BESYLATE 5 MG TAB PO SCH (10:45)
[2020-09-16] MEDS: METOPROLOL SUCCINATE XL 50 MG TAB PO SCH (10:45)
[2020-09-16] MEDS ORDERED: CLOPIDOGREL BISULFATE 75 MG TAB PO ONE (11:00)
[2020-09-16] MEDS ORDERED: APIXABAN 5 MG TAB PO ONE (11:00)
[2020-09-16] MEDS ORDERED: HEPARIN SODIUM (PORCINE) 5000 UNITS/ML 1ML VIAL ONE (11:53)
[2020-09-16] MEDS ORDERED: ANGIOMAX 250 MG VIAL IV ONE (11:53)
[2020-09-16] MEDS ORDERED: VERAPAMIL 2.5MG/ML INJ 2ML VIAL IV ONE (11:53)
[2020-09-16] MEDS ORDERED: LIDOCAINE 2%HCL (LOCAL ANESTH.) INJ 20ML MDV ONE (11:54)
[2020-09-16] MEDS ORDERED: fentaNYL CITRATE 100 MCG/2 ML VL ONE (11:54)
[2020-09-16] MEDS ORDERED: MIDAZOLAM HCL 1MG/1ML-2 ML VIAL ONE (11:54)
[2020-09-16] MEDS ORDERED: SODIUM CHL 0.9% 50 ML ONE (11:54)
[2020-09-16 12:08] VITALS: BP 101/51
[2020-09-16] MEDS ORDERED: IOHEXOL 350 MG/ML 100ML IJ ONE (12:31)
[2020-09-16] MEDS ORDERED: IODIXANOL 320MG/ML 100ML BTL IV ONE (12:42)
[2020-09-16] MEDS ORDERED: BUPIVACAINE HCL 50 ML ONE (12:47)
[2020-09-16] MEDS ORDERED: ASPirin 325 MG TAB ONE (13:16)
[2020-09-16] MEDS ORDERED: CLOPIDOGREL BISULFATE 75 MG TAB ONE (13:16)
[2020-09-16] MEDS ORDERED: OPTISON 3ml Vial for INJ IV ONE (14:24)
--- NOTE | 2020-09-16 18:54 | NUR ---
MD Boyd at bedside Updated patient on POC. All questions answered at this time.
--- NOTE | 2020-09-16 20:05 | NUR ---
Telemetry admit from clinical lab scientist LIBIA DENNIS admitted to Telemetry unit after SBAR received. Patient oriented to primary RN, unit, room, bed, and unit policies regarding patient care and visiting hours. Patient now on continuous telemetry monitoring, tele box #54 and telemetry reading on arrival to unit is a-fib. Patient placed on bedside oxygen, weighed by bedscale and encouraged to call if they need something. All questions and concerns addressed, patient verbalized understanding. Bed in lowest locked position, call light within reach, side rails p x2, fall precautions in place. Will continue to monitor Q1hr and PRN.
[2020-09-16 20:10] VITALS: BP 99/65
[2020-09-16] MEDS ORDERED: ATOR1TAB PO (20:56)
[2020-09-16] MEDS ORDERED: INSLANTI SC (20:56)
[2020-09-16] MEDS ORDERED: LEVO125T7 PO (20:56)
[2020-09-16] MEDS ORDERED: LISI40TA11 PO (20:56)
[2020-09-16] MEDS ORDERED: METO-158 PO (20:56)
[2020-09-16] MEDS ORDERED: MYC15TP TOP (20:56)
[2020-09-16] MEDS ORDERED: PERCOT PO (20:56)
[2020-09-16 21:00] VITALS: BP 94/52
[2020-09-16] MEDS: APIXABAN 5 MG TAB PO SCH (21:42)
[2020-09-16] MEDS: OXYCODONE W/ ACETAMINOPHEN 5/325MG TABLET PO PRN (21:44)
[2020-09-16] MEDS ORDERED: ATORVASTATIN 20 MG TAB PO SCH (22:00)
[2020-09-16 23:09] LABS: Basophils # (auto) 0 10 ^3/uL (0-0.2); Basophils % (auto) 0.3 % (0.0-2.0); Eosinophils # (auto) 0.1 10 ^3/uL (0-0.8); Hematocrit 30.3 % (36.0-46.0); Hemoglobin 9.9 g/dL (12.2-16.2); Lymphocytes # (auto) 0.7 10 ^3/uL (0.4-5.4); Lymphocytes % (auto) 8.1 % (10.0-50.0); Mean Corpuscular Hemoglobin 27.5 pg (28.0-32.0); Mean Corpuscular Hgb Conc. 32.6 g/dL (32.0-36.0); Mean Corpuscular Volume 84.3 fL (80.0-100.0); Monocytes # (auto) 0.8 10 ^3/uL (0-1.3); Monocytes % (auto) 9.9 % (0.0-12.0); Neutrophils # (auto) 6.9 10 ^3/uL (1.6-8.6); Neutrophils % (auto) 80.7 % (37.0-80.0); Platelet Count (auto) 167 10^3/uL (140-450); Red Blood Cells 3.59 10^6/uL (4.0-5.20); Red Cell Distribution Width 14.5 % (11.8-14.3); White Blood Cell 8.5 10^3/uL (4.4-10.8)
[2020-09-16 23:33] LABS: Albumin 2.8 g/dL (3.4-5.0); Calcium 8.3 mg/dL (8.5-10.1); Potassium 4.5 mmol/L (3.5-5.1)
[2020-09-16 23:37] LABS: BUN/Creatinine Ratio 20.8; Bilirubin, Total 0.7 mg/dL (0.2-1.0); Total Protein 6.3 g/dL (6.4-8.2)
[2020-09-17 05:00] VITALS: BP 100/54
[2020-09-17] MEDS: FUROSEMIDE 40 MG TAB PO SCH ×2 (06:31→17:37)
[2020-09-17] MEDS: ACCU-CHEK COMFORT CURVE STRIP VI SCH ×3 (06:31→17:37)
[2020-09-17] MEDS: LEVOTHYROXINE SODIUM 50 MCG TAB PO SCH (06:31)
[2020-09-17] MEDS: InsuLIN REG 1unit/0.01ml Soln (100units/ml) SC SCH ×3 (06:32→17:00)
[2020-09-17 07:52] LABS: Basophils # (auto) 0 10 ^3/uL (0-0.2); Basophils % (auto) 0.4 % (0.0-2.0); Eosinophils # (auto) 0.1 10 ^3/uL (0-0.8); Eosinophils % (auto) 1.5 % (0.0-7.0); Hematocrit 30.1 % (36.0-46.0); Hemoglobin 9.9 g/dL (12.2-16.2); Lymphocytes # (auto) 0.7 10 ^3/uL (0.4-5.4); Lymphocytes % (auto) 9.4 % (10.0-50.0); Mean Corpuscular Hemoglobin 27.6 pg (28.0-32.0); Mean Corpuscular Hgb Conc. 32.8 g/dL (32.0-36.0); Mean Corpuscular Volume 84.2 fL (80.0-100.0); Monocytes # (auto) 0.7 10 ^3/uL (0-1.3); Monocytes % (auto) 9.2 % (0.0-12.0); Neutrophils # (auto) 5.9 10 ^3/uL (1.6-8.6); Neutrophils % (auto) 79.5 % (37.0-80.0); Platelet Count (auto) 172 10^3/uL (140-450); Red Blood Cells 3.58 10^6/uL (4.0-5.20); Red Cell Distribution Width 14.9 % (11.8-14.3); White Blood Cell 7.4 10^3/uL (4.4-10.8)
[2020-09-17 08:08] LABS: Albumin 2.8 g/dL (3.4-5.0); Calcium 8.6 mg/dL (8.5-10.1)
[2020-09-17 08:11] LABS: BUN/Creatinine Ratio 21.1; Bilirubin, Total 0.7 mg/dL (0.2-1.0); Total Protein 6.4 g/dL (6.4-8.2)
[2020-09-17 09:00] VITALS: BP 102/54
[2020-09-17] MEDS ORDERED: cefTRIAXone 1GM/50ML D5W 50 ML IV SCH (09:00)
[2020-09-17] MEDS: METOPROLOL SUCCINATE XL 50 MG TAB PO SCH (09:13)
[2020-09-17] MEDS: APIXABAN 5 MG TAB PO SCH ×2 (09:13→09:29)
[2020-09-17] MEDS: levoFLOXacin 250MG 50 ML IV SCH (09:14)
[2020-09-17] MEDS: amLODIPine BESYLATE 5 MG TAB PO SCH (09:14)
[2020-09-17] MEDS: OXYCODONE W/ ACETAMINOPHEN 5/325MG TABLET PO PRN (09:15)
[2020-09-17] MEDS ORDERED: CLOPIDOGREL BISULFATE 75 MG TAB PO SCH (10:00)
--- NOTE | 2020-09-17 10:00 | NUR ---
Rt radial dry, intact, no drainage noted.
--- NOTE | 2020-09-17 10:20 | NUR ---
Informed Dr. Ansley Dobbins regarding patient last BM 09/13, need laxative. aware.
--- NOTE | 2020-09-17 10:29 | NUR ---
Evelyn TOLENTINO paged for DC clearance. Awaiting to call back.
--- NOTE | 2020-09-17 10:38 | NUR ---
Per Evelyn TOLENTINO, patient is cleared from cardiology standpoint.
[2020-09-17] MEDS ORDERED: APIX5TAB PO (11:11)
--- NOTE | 2020-09-17 11:19 | NUR ---
1115 09/17/20 - Contacted by Ashlie Villanueva case operator for [facility] who informed me that patient would be discharging home today. She also requested home health order for safety evaluation be faxed to her office to send to [facility]. Faxed orders to [phone] as requested. Pending review and acceptance.
[2020-09-17] MEDS ORDERED: NYST1POW12 XX (11:47)
[2020-09-17] MEDS ORDERED: FAMO-12 PO (11:47)
[2020-09-17] MEDS ORDERED: CLON0.5T3 PO (11:47)
[2020-09-17] MEDS ORDERED: GABA300C10 PO (11:47)
[2020-09-17] MEDS ORDERED: CLOP75TA41 PO (11:47)
[2020-09-17] MEDS ORDERED: ASPI-543 PO (11:47)
[2020-09-17 13:00] VITALS: BP 102/55
--- NOTE | 2020-09-17 14:03 | NUR ---
Left a message to Dr. Ansley Dobbins regarding Med rec done.
[2020-09-17] MEDS ORDERED: LISI-648 PO (14:22)
[2020-09-17] MEDS ORDERED: METO25TA93 PO (14:22)
[2020-09-17] MEDS ORDERED: LISI2.5T47 PO (14:34)
[2020-09-17] MEDS ORDERED: SUCR1TAB PO (15:17)
[2020-09-17] MEDS ORDERED: PANT40TA2 PO (15:18)
--- NOTE | 2020-09-17 16:41 | NUR ---
SS partition setter paged regarding HH order, awaiting to call back.
--- NOTE | 2020-09-17 16:45 | NUR ---
Spoke to [place] Graff stated patient will be with [facility].
[2020-09-17 17:00] VITALS: BP 102/54
[2020-09-17 17:21] VITALS: BP 102/54
--- NOTE | 2020-09-17 19:14 | NUR ---
Discharge instructions given as ordered. Encourage to follow up with PMD (Follow up with [facility] #[phone] Address : [address], [address], [place], [address] Follow up with Cardiology in a week Dr. Cabrera)as instructed. All questions and concerns addressed. Patient verbalized understanding. Medication reconciliation form completed and copy given to patient. IV removed with catheter intact, pressure dressing applied. Telemetry unit returned to ICU. Patient taken to vehicle via wheelchair with all personal belongings, accompanied by staff and family member. No distress noted at time of departure.
[2020-09-18] MEDS ORDERED: METOPROLOL SUCCINATE XL 50 MG TAB PO SCH (10:00)
[2020-09-18] MEDS ORDERED: LISINOPRIL 5 MG TAB PO SCH (10:00)
== END 2020-09-17 19:18 | disposition home health service (06) | DRG 250 ==
LOC: EDBD 20:33 → ER 20:38 → TELE 20:39 → TELE-WESTW 09-16 20:05
PROVIDERS: ADMIT Nurse Practitioner; ATTEND Internal Medicine
PROC: 4A023N7 Measurement of Cardiac Sampling and Pressure, Left Heart, Percutaneous Approach (ICD-10-PCS; principal; 2020-09-16)
PROC: 02703ZZ Dilation of Coronary Artery, One Artery, Percutaneous Approach (ICD-10-PCS; 2020-09-16)
PROC: 02C03ZZ Extirpation of Matter from Coronary Artery, One Artery, Percutaneous Approach (ICD-10-PCS; 2020-09-16)
PROC: B211YZZ Fluoroscopy of Multiple Coronary Arteries using Other Contrast (ICD-10-PCS; 2020-09-16)
PROC: B215YZZ Fluoroscopy of Left Heart using Other Contrast (ICD-10-PCS; 2020-09-16)
PROC: 4A033BC Measurement of Arterial Pressure, Coronary, Percutaneous Approach (ICD-10-PCS; 2020-09-16)
DX: T82.855A Stenosis of coronary artery stent, initial encounter (principal); I21.4 Non-ST elevation (NSTEMI) myocardial infarction; N39.0 Urinary tract infection, site not specified; I50.22 Chronic systolic (congestive) heart failure; I13.0 Hypertensive heart and chronic kidney disease with heart failure and stage 1 through stage 4 chronic kidney disease, or unspecified chronic kidney disease; Z68.41 Body mass index [BMI] 40.0-44.9, adult; N18.30 Chronic kidney disease, stage 3 unspecified; E66.01 Morbid (severe) obesity due to excess calories; E78.5 Hyperlipidemia, unspecified; E03.9 Hypothyroidism, unspecified; E11.22 Type 2 diabetes mellitus with diabetic chronic kidney disease; E11.51 Type 2 diabetes mellitus with diabetic peripheral angiopathy without gangrene; F32.9 Major depressive disorder, single episode, unspecified; G89.4 Chronic pain syndrome; I48.91 Unspecified atrial fibrillation; I25.10 Atherosclerotic heart disease of native coronary artery without angina pectoris; Z20.828 Contact with and (suspected) exposure to other viral communicable diseases; Y84.0 Cardiac catheterization as the cause of abnormal reaction of the patient, or of later complication, without mention of misadventure at the time of the procedure; K21.9 Gastro-esophageal reflux disease without esophagitis; Z79.4 Long term (current) use of insulin; Z82.49 Family history of ischemic heart disease and other diseases of the circulatory system; Z98.61 Coronary angioplasty status; Y92.89 Other specified places as the place of occurrence of the external cause
CPT/HCPCS: 36415; 71045; 71250; 74176; 80053; 81001; 82150; 82962; 83605; 83690; 83735; 84443; 84484; 85025; 85379; 85610; 85730; 87040; 87086; 87426; 92924; 93005; 93306; 93458; 93571; 96365; 96366; 96375; 99152; 99153; G0378; J0696; J1815; J2250; J2405; J3490; Q9956; Q9967

== ENCOUNTER 2021-09-27 11:34 | Inpatient (IN) | payer OTHER, MEDICAID ==
[~2021-09-27] VITALS: Ht 167.6 cm; Wt 115.8 kg
[~2021-09-27 11:34] MED LIST changes: -ALBUAER3 IN; -AML5T PO; +APIX5TAB PO; +ATOR-47 PO; -ATOR20TA50 PO; +CLON0.5T3 PO; +CLOP75TA70 PO; +FAMO-12 PO; -FLUT250M2 INH; -HYDR-531 PO; +LEVO125T7 PO; -LEVO150T58 PO; +LISI2.5T47 PO; -METO-158 PO; +METO25TA93 PO; +MYC15TP TOP; -NAS17NSL; +NYST150P2 XX; +PANT40TA2 PO; +PERCOT PO; +SUCR1TAB PO
[2021-09-27 13:38] LABS: Basophils # (auto) 0 10 ^3/uL (0-0.2); Basophils % (auto) 0.5 % (0.0-2.0); Eosinophils # (auto) 0.1 10 ^3/uL (0-0.8); Eosinophils % (auto) 1.6 % (0.0-7.0); Hematocrit 33.1 % (36.0-46.0); Hemoglobin 10.6 g/dL (12.2-16.2); Lymphocytes # (auto) 0.6 10 ^3/uL (0.4-5.4); Lymphocytes % (auto) 7.9 % (10.0-50.0); Mean Corpuscular Hemoglobin 28.6 pg (28.0-32.0); Mean Corpuscular Hgb Conc. 32.2 g/dL (32.0-36.0); Mean Corpuscular Volume 88.9 fL (80.0-100.0); Monocytes # (auto) 0.4 10 ^3/uL (0-1.3); Monocytes % (auto) 5.5 % (0.0-12.0); Neutrophils # (auto) 6.2 10 ^3/uL (1.6-8.6); Neutrophils % (auto) 84.5 % (37.0-80.0); Red Blood Cells 3.72 10^6/uL (4.0-5.20); Red Cell Distribution Width 14.9 % (11.8-14.3); White Blood Cell 7.4 10^3/uL (4.4-10.8)
[2021-09-27 13:52] LABS: Albumin 3.2 g/dL (3.4-5.0)
[2021-09-27 13:56] LABS: BUN/Creatinine Ratio 17.4; Bilirubin, Total 0.3 mg/dL (0.2-1.0); Calcium 8.3 mg/dL (8.5-10.1); Total Protein 6.6 g/dL (6.4-8.2)
[2021-09-27 14:04] LABS: INR 1.11 (0.9-1.15)
[2021-09-27 14:28] LABS: Urine Bacteria FEW /hpf (None Seen); Urine Blood Negative /uL (Negative); Urine Hyaline Cast FEW /lpf (0 - 2); Urine Specific Gravity 1.017 (1.001-1.035); Urine WBC 14 /hpf (0 - 5)
[2021-09-27] MEDS ORDERED: ONDANSETRON HCL 4 MG/2 ML VIAL IV ONE (16:00)
[2021-09-27] MEDS ORDERED: MORPHINE SULFATE INJECTION 2 MG/ML SYRG IV ONE (16:00)
[2021-09-27] MEDS ORDERED: MORPHINE SULFATE INJECTION 2 MG/ML SYRG IV PRN ×2 (18:15→18:30)
[2021-09-27] MEDS ORDERED: NITROGLYCERIN 0.4 MG SL TAB SL PRN (18:15)
[2021-09-27] MEDS ORDERED: ONDANSETRON HCL 4 MG/2 ML VIAL IV PRN (18:30)
[2021-09-27] MEDS ORDERED: DEXTROSE (50%) 50ML SYRG IV PRN (18:30)
[2021-09-27] MEDS ORDERED: traMADol HCL 50 MG TAB PO PRN (18:30)
[2021-09-27] MEDS ORDERED: cefTRIAXone 1GM/50ML D5W 50 ML IV ONE (18:30)
[2021-09-27] MEDS ORDERED: ACETAMINOPHEN 500 MG TAB PO PRN (18:30)
[2021-09-27] MEDS ORDERED: LACTULOSE 20Gm/30ML SOLN PO PRN ×2 (18:30)
[2021-09-27] MEDS ORDERED: BACLOFEN 10 MG TAB PO PRN (19:15)
[2021-09-27] MEDS ORDERED: clonazePAM 0.5 MG TAB PO PRN (19:39)
[2021-09-27 21:16] VITALS: BP 149/89
[2021-09-27 21:48] VITALS: BP 149/89
[2021-09-27] MEDS: ENOXAPARIN SOD 100 MG/1 ML SYRINGE SC SCH (22:41)
[2021-09-27] MEDS: FUROSEMIDE 40 MG/4 ML VIAL IV SCH (22:41)
[2021-09-27] MEDS: SUCRALFATE 1 GM TAB PO SCH (22:42)
[2021-09-27] MEDS: GABAPENTIN 300 MG CAP PO SCH (22:42)
[2021-09-27] MEDS: busPIRone HCL 10 MG TAB PO SCH (22:42)
[2021-09-27] MEDS: ATORVASTATIN 20 MG TAB PO SCH (22:42)
[2021-09-27] MEDS: SODIUM CHLOR 0.9% PF (SALINE LOCK) 10ML VIAL/SYR IV SCH (22:42)
[2021-09-27] MEDS: ACCU-CHEK COMFORT CURVE STRIP VI SCH (22:43)
[2021-09-27] MEDS: OXYCODONE W/ ACETAMINOPHEN 5/325MG TABLET PO SCH (22:43)
[2021-09-27] MEDS: FAMOTIDINE 20 MG TAB PO SCH (22:43)
[2021-09-28] MEDS: InsuLIN REG 1unit/0.01ml Soln (100units/ml) SC SCH ×5 (00:03→22:00)
[2021-09-28] MEDS ORDERED: LEVO175C2 PO (01:45)
[2021-09-28] MEDS ORDERED: FURO1TAB31 PO (01:45)
[2021-09-28] MEDS ORDERED: ATO40T PO (01:45)
[2021-09-28] MEDS ORDERED: ALUM-32 PO (02:03)
[2021-09-28] MEDS ORDERED: NITR0.4S29 SL (02:03)
[2021-09-28] MEDS ORDERED: MULT-1018 PO (02:03)
[2021-09-28] MEDS ORDERED: MAGN400S25 PO (02:03)
[2021-09-28] MEDS ORDERED: ARTISOL13 EACHEYE (02:03)
[2021-09-28] MEDS ORDERED: GUAI200T2 PO (02:03)
[2021-09-28] MEDS ORDERED: ASPI-543 PO (02:03)
[2021-09-28] MEDS ORDERED: ASCO500T11 (02:03)
[2021-09-28] MEDS ORDERED: CHOL20007 PO (02:03)
[2021-09-28] MEDS ORDERED: BISA10SU45 RE (02:03)
[2021-09-28] MEDS ORDERED: SERT50TA19 PO (02:03)
[2021-09-28] MEDS ORDERED: IPRIH INH (02:03)
[2021-09-28] MEDS ORDERED: DOCU-94 PO (02:03)
[2021-09-28 04:35] VITALS: BP 136/57
[2021-09-28] MEDS: SODIUM CHLOR 0.9% PF (SALINE LOCK) 10ML VIAL/SYR IV SCH ×3 (06:16→21:56)
[2021-09-28] MEDS: ACCU-CHEK COMFORT CURVE STRIP VI SCH ×4 (06:16→21:57)
[2021-09-28] MEDS: LEVOTHYROXINE SODIUM 50 MCG TAB PO SCH (06:51)
[2021-09-28] MEDS: SUCRALFATE 1 GM TAB PO SCH ×4 (06:51→21:56)
[2021-09-28] MEDS: OXYCODONE W/ ACETAMINOPHEN 5/325MG TABLET PO SCH ×3 (06:51→22:00)
[2021-09-28] MEDS: ENOXAPARIN SOD 100 MG/1 ML SYRINGE SC SCH ×2 (06:52→18:36)
[2021-09-28 07:11] LABS: BUN/Creatinine Ratio 17.5; Potassium 4.3 mmol/L (3.5-5.1)
[2021-09-28 07:12] LABS: Albumin 2.9 g/dL (3.4-5.0); Bilirubin, Total 0.3 mg/dL (0.2-1.0); Calcium 8.5 mg/dL (8.5-10.1); Total Protein 6.3 g/dL (6.4-8.2)
[2021-09-28 08:54] VITALS: BP 153/94
[2021-09-28] MEDS: FUROSEMIDE 40 MG/4 ML VIAL IV SCH (08:54)
[2021-09-28] MEDS: cefTRIAXone 1GM/50ML D5W 50 ML IV SCH (08:54)
[2021-09-28] MEDS: busPIRone HCL 10 MG TAB PO SCH ×2 (08:55→21:56)
[2021-09-28] MEDS: INSULIN LANTUS (GLARGINE) 1 /0.01ml (100units/ml) SC SCH (08:55)
[2021-09-28] MEDS: ENALAPRIL MALEATE 2.5 MG TAB PO SCH (08:55)
[2021-09-28] MEDS: ASPirin 81 mg TAB PO SCH (08:55)
[2021-09-28 12:55] VITALS: BP 138/77
[2021-09-28 16:54] VITALS: BP 134/69
[2021-09-28] MEDS: ATORVASTATIN 20 MG TAB PO SCH (21:56)
[2021-09-28] MEDS: GABAPENTIN 300 MG CAP PO SCH (21:57)
[2021-09-28] MEDS: FAMOTIDINE 20 MG TAB PO SCH (21:57)
[2021-09-28 22:00] VITALS: BP 115/54
[2021-09-29 05:00] VITALS: BP 129/67
[2021-09-29] MEDS: SODIUM CHLOR 0.9% PF (SALINE LOCK) 10ML VIAL/SYR IV SCH ×2 (05:54→14:00)
[2021-09-29] MEDS: OXYCODONE W/ ACETAMINOPHEN 5/325MG TABLET PO SCH ×2 (06:15→14:00)
[2021-09-29] MEDS: LEVOTHYROXINE SODIUM 50 MCG TAB PO SCH (06:29)
[2021-09-29] MEDS: SUCRALFATE 1 GM TAB PO SCH ×3 (06:29→17:00)
[2021-09-29] MEDS: InsuLIN REG 1unit/0.01ml Soln (100units/ml) SC SCH ×3 (06:29→18:18)
[2021-09-29] MEDS: ACCU-CHEK COMFORT CURVE STRIP VI SCH ×3 (06:29→17:00)
[2021-09-29] MEDS: ENOXAPARIN SOD 100 MG/1 ML SYRINGE SC SCH (06:30)
[2021-09-29 08:47] VITALS: BP 138/51
[2021-09-29] MEDS: cefTRIAXone 1GM/50ML D5W 50 ML IV SCH (09:00)
[2021-09-29] MEDS: busPIRone HCL 10 MG TAB PO SCH (10:00)
[2021-09-29] MEDS: ASPirin 81 mg TAB PO SCH (10:00)
[2021-09-29] MEDS: INSULIN LANTUS (GLARGINE) 1 /0.01ml (100units/ml) SC SCH (10:00)
[2021-09-29] MEDS: FUROSEMIDE 40 MG/4 ML VIAL IV SCH (10:00)
[2021-09-29] MEDS: ENALAPRIL MALEATE 2.5 MG TAB PO SCH (10:00)
[2021-09-29 12:00] VITALS: BP 151/70
[2021-09-29 16:58] VITALS: BP 125/65
[2021-09-29 18:25] VITALS: BP 138/74
== END 2021-09-29 19:40 | disposition home health service (06) | DRG 309 ==
LOC: EDBD 11:34 → ER 11:34 → TELE 18:13 → TELE-WESTW 19:46
PROVIDERS: ADMIT Internal Medicine; ATTEND Hospitalist
DX: I49.8 Other specified cardiac arrhythmias (principal); J96.10 Chronic respiratory failure, unspecified whether with hypoxia or hypercapnia; Z68.41 Body mass index [BMI] 40.0-44.9, adult; N39.0 Urinary tract infection, site not specified; L97.519 Non-pressure chronic ulcer of other part of right foot with unspecified severity; S91.301A Unspecified open wound, right foot, initial encounter; E11.51 Type 2 diabetes mellitus with diabetic peripheral angiopathy without gangrene; I50.9 Heart failure, unspecified; I11.0 Hypertensive heart disease with heart failure; I48.0 Paroxysmal atrial fibrillation; J44.9 Chronic obstructive pulmonary disease, unspecified; E66.01 Morbid (severe) obesity due to excess calories; E03.9 Hypothyroidism, unspecified; I25.10 Atherosclerotic heart disease of native coronary artery without angina pectoris; X58.XXXA Exposure to other specified factors, initial encounter; Z90.49 Acquired absence of other specified parts of digestive tract; Z83.3 Family history of diabetes mellitus; Y93.89 Activity, other specified; Y92.89 Other specified places as the place of occurrence of the external cause; Y99.8 Other external cause status; Z82.49 Family history of ischemic heart disease and other diseases of the circulatory system
CPT/HCPCS: 36415; 71045; 80053; 81001; 82962; 83036; 83880; 84443; 84484; 85025; 85610; 87081; 87426; 96365; 96375; 97162; G0378; J0696; J1815; J2405

== ENCOUNTER 2022-04-19 18:27 | Emergency (ER) | payer MEDICARE, MEDICAID ==
[~2022-04-19] VITALS: Ht 167.6 cm; Wt 113.4 kg
[~2022-04-19 18:27] MED LIST changes: +ALUM-32 PO; -APIX5TAB PO; +ARTISOL13 EACHEYE; +ASCO500T11; +ASPI-543 PO; +ATO40T PO; -ATOR-47 PO; -BACL10TA PO; +BISA10SU45 RE; +CHOL20007 PO; +DOCU-94 PO; +FURO1TAB31 PO; -FURO40TA4 PO; -GABA300C10 PO; +GUAI200T2 PO; +IPRIH INH; -LEVO125T7 PO; +LEVO175C2 PO; +MAGN400S25 PO; -METO25TA93 PO; +MULT-1018 PO; +NITR0.4S29 SL; -OMEP20TA PO; -PANT40TA2 PO; -POTA10TA51 PO; +SERT50TA19 PO; -SUCR1TAB PO
[2022-04-19 19:18] LABS: Basophils # (auto) 0 10 ^3/uL (0-0.2); Basophils % (auto) 0.6 % (0.0-2.0); Eosinophils # (auto) 0.2 10 ^3/uL (0-0.8); Eosinophils % (auto) 2.4 % (0.0-7.0); Hematocrit 32.3 % (36.0-46.0); Hemoglobin 10.8 g/dL (12.2-16.2); Lymphocytes # (auto) 0.7 10 ^3/uL (0.4-5.4); Lymphocytes % (auto) 10.5 % (10.0-50.0); Mean Corpuscular Hemoglobin 28.5 pg (28.0-32.0); Mean Corpuscular Hgb Conc. 33.3 g/dL (32.0-36.0); Mean Corpuscular Volume 85.5 fL (80.0-100.0); Monocytes # (auto) 0.5 10 ^3/uL (0-1.3); Monocytes % (auto) 7.2 % (0.0-12.0); Neutrophils # (auto) 5.6 10 ^3/uL (1.6-8.6); Neutrophils % (auto) 79.3 % (37.0-80.0); Red Blood Cells 3.78 10^6/uL (4.0-5.20); Red Cell Distribution Width 15.8 % (11.8-14.3); White Blood Cell 7.1 10^3/uL (4.4-10.8)
[2022-04-19 19:35] LABS: Albumin 3.2 g/dL (3.4-5.0); BUN/Creatinine Ratio 25.5; Calcium 9.1 mg/dL (8.5-10.1); Potassium 4.5 mmol/L (3.5-5.1)
[2022-04-19 19:38] LABS: Bilirubin, Total 0.3 mg/dL (0.2-1.0)
[2022-04-19 21:40] VITALS: BP 152/89
== END 2022-04-19 22:01 | disposition home or self-care (01) ==
LOC: EDBD 18:27 → ER 18:27
DX: R10.13 Epigastric pain (principal); I11.0 Hypertensive heart disease with heart failure; I50.9 Heart failure, unspecified; E11.9 Type 2 diabetes mellitus without complications; I48.91 Unspecified atrial fibrillation; J44.9 Chronic obstructive pulmonary disease, unspecified; Z90.49 Acquired absence of other specified parts of digestive tract; Z79.4 Long term (current) use of insulin; Z79.899 Other long term (current) drug therapy; Z79.82 Long term (current) use of aspirin
CPT/HCPCS: 36415; 71045; 80053; 83880; 84484; 85025; 93005

== ENCOUNTER 2023-06-29 14:22 | Inpatient (IN) | payer MEDICARE, MEDICAID ==
[~2023-06-29] VITALS: Ht 167.6 cm; Wt 99.0 kg
[~2023-06-29 14:22] MED LIST changes: -GUAI200T2 PO; +GUAI200T6 PO; +SERT-206 PO; -SERT50TA19 PO
[2023-06-29 15:31] LABS: Basophils # (auto) 0 10 ^3/uL (0-0.2); Basophils % (auto) 0.6 % (0.0-2.0); Eosinophils # (auto) 0.1 10 ^3/uL (0-0.8); Eosinophils % (auto) 0.9 % (0.0-7.0); Hematocrit 37.9 % (36.0-46.0); Hemoglobin 12.7 g/dL (12.2-16.2); Lymphocytes # (auto) 0.8 10 ^3/uL (0.4-5.4); Lymphocytes % (auto) 10.2 % (10.0-50.0); Mean Corpuscular Hgb Conc. 33.6 g/dL (32.0-36.0); Mean Corpuscular Volume 89.3 fL (80.0-100.0); Monocytes # (auto) 0.7 10 ^3/uL (0-1.3); Monocytes % (auto) 8.6 % (0.0-12.0); Neutrophils # (auto) 6.4 10 ^3/uL (1.6-8.6); Neutrophils % (auto) 79.7 % (37.0-80.0); Nucleated Red Blood Cells % 0.1 %; Red Blood Cells 4.24 10^6/uL (4.0-5.20); Red Cell Distribution Width 13.5 % (11.8-14.3); White Blood Cell 8.1 10^3/uL (4.4-10.8)
[2023-06-29 16:00] LABS: Alanine Aminotransferase 17 U/L (7-40); Albumin 3.9 g/dL (3.2-4.8); Alkaline Phosphatase 114 U/L (46-116); Aspartate Aminotransferase 22 U/L (13-40); Blood Urea Nitrogen 16 mg/dL (9-23); Calcium 9.3 mg/dL (8.5-10.1); Chloride 104 mmol/L (98-107); Glucose 105 mg/dL (74-106); Lipase 42 U/L (12-53); Potassium 4.2 mmol/L (3.5-5.1); Sodium 138 mmol/L (136-145)
[2023-06-29 16:01] LABS: Bilirubin, Total 0.7 mg/dL (0.2-1.0); Total Protein 6.2 g/dL (5.7-8.2)
[2023-06-29] MEDS: SODIUM CHLORIDE 0.9% 1,000 ML IV SCH (16:15)
[2023-06-29 16:48] LABS: LDL Cholesterol 56 mg/dL (< 100); Lipase 42 U/L (12-53); Triglycerides 108 mg/dL (< 150)
[2023-06-29 16:49] LABS: HDL Cholesterol 40 mg/dL (40-59)
[2023-06-29 16:50] LABS: Cholesterol 117 mg/dL (< 200)
[2023-06-29] MEDS ORDERED: DOCUSATE SOD 100 MG CAP PO PRN (22:00)
[2023-06-29] MEDS ORDERED: clonazePAM 0.5 MG TAB PO PRN (22:00)
[2023-06-30] VITALS (10 sets, daily range): BP systolic 148–184; BP diastolic 72–83; PULSE 60–106; RESP 18–20; TEMP 97.3–97.8; O2SAT 93–99
[2023-06-30] MEDS: busPIRone HCL 10 MG TAB PO SCH ×3 (00:05→21:04)
[2023-06-30] MEDS: FAMOTIDINE 20 MG TAB PO SCH ×2 (00:05→21:04)
[2023-06-30] MEDS: ATORVASTATIN 20 MG TAB PO SCH ×2 (00:06→17:52)
[2023-06-30] MEDS: ACETAMINOPHEN 325 MG TAB PO PRN (02:31)
[2023-06-30] MEDS ORDERED: DEXTROSE (50%) 50ML SYRG IV PRN (02:45)
[2023-06-30] MEDS ORDERED: INSU100I52 SC (05:43)
[2023-06-30] MEDS ORDERED: MET25T PO (05:43)
[2023-06-30] MEDS ORDERED: BUSP15TA60 PO (05:43)
[2023-06-30] MEDS ORDERED: LEVO150T10 PO (05:43)
[2023-06-30] MEDS ORDERED: PANT40T PO (05:43)
[2023-06-30] MEDS ORDERED: ATOR40TA52 PO (05:43)
[2023-06-30] MEDS ORDERED: ONDA-188 PO (05:43)
[2023-06-30] MEDS ORDERED: FURO40TA4 PO (05:43)
[2023-06-30] MEDS: InsuLIN REG 1unit/0.01ml Soln (100units/ml) SC SCH ×4 (06:00→23:02)
[2023-06-30 06:07] LABS: Urine Bacteria MOD /hpf (None Seen); Urine Blood Negative /uL (Negative); Urine Clarity Clear (Clear); Urine Color Colorless (Yellow); Urine Protein, UAD Negative (Negative); Urine Specific Gravity 1.006 (1.001-1.035); Urine Urobilinogen Normal (Negative); Urine WBC 6 /hpf (0 - 5); Urine pH 5.5 (5.0-8.0)
[2023-06-30] MEDS: ACCU-CHEK COMFORT CURVE STRIP VI SCH ×4 (06:30→23:02)
[2023-06-30 08:09] LABS: Basophils # (auto) 0 10 ^3/uL (0-0.2); Basophils % (auto) 0.8 % (0.0-2.0); Eosinophils # (auto) 0.2 10 ^3/uL (0-0.8); Eosinophils % (auto) 3.1 % (0.0-7.0); Hematocrit 29.2 % (36.0-46.0); Hemoglobin 9.6 g/dL (12.2-16.2); Lymphocytes # (auto) 0.6 10 ^3/uL (0.4-5.4); Lymphocytes % (auto) 11.1 % (10.0-50.0); Mean Corpuscular Hemoglobin 28.2 pg (28.0-32.0); Mean Corpuscular Hgb Conc. 32.8 g/dL (32.0-36.0); Monocytes # (auto) 0.5 10 ^3/uL (0-1.3); Monocytes % (auto) 8.9 % (0.0-12.0); Neutrophils % (auto) 76.1 % (37.0-80.0); White Blood Cell 5.2 10^3/uL (4.4-10.8)
[2023-06-30] MEDS: ASPirin-EC 81 mg tab PO SCH (08:34)
[2023-06-30] MEDS: SERTRALINE HCL 50 MG TAB PO SCH (08:34)
[2023-06-30] MEDS: CHOLECALCIFEROL (VITD3) 2,000 UNIT CAP/TAB PO SCH (08:35)
[2023-06-30] MEDS: CLOPIDOGREL BISULFATE 75 MG TAB PO SCH (08:35)
[2023-06-30] MEDS: LISINOPRIL 5 MG TAB PO SCH (08:36)
[2023-06-30] MEDS: FUROSEMIDE 40 MG TAB PO SCH (08:36)
[2023-06-30] MEDS: ENOXAPARIN SOD 40 MG/0.4 ML SYRINGE SC SCH (08:37)
[2023-06-30] MEDS: SODIUM CHLORIDE 0.9% 1,000 ML IV SCH (08:42)
[2023-06-30] MEDS: HYDROcodone-ACET 5/325MG TAB PO PRN (08:42)
[2023-06-30] MEDS ORDERED: ASCORBIC ACID 500 MG TAB PO SCH (10:00)
[2023-06-30] MEDS ORDERED: LACTULOSE 20Gm/30ML SOLN PO ONE (15:15)
[2023-06-30] MEDS ORDERED: DOCUSATE SOD 100 MG CAP PO ONE (15:15)
[2023-06-30] MEDS ORDERED: cefTRIAXone 1GM/50ML D5W 50 ML IV ONE (15:15)
[2023-06-30] MEDS ORDERED: hydrALAZINE HCL 20 MG/ML VL IV ONE (22:15)
[2023-07-01] MEDS: InsuLIN REG 1unit/0.01ml Soln (100units/ml) SC SCH ×3 (06:00→17:34)
[2023-07-01 06:21] LABS: Basophils # (auto) 0 10 ^3/uL (0-0.2); Basophils % (auto) 0.3 % (0.0-2.0); Eosinophils # (auto) 0.1 10 ^3/uL (0-0.8); Eosinophils % (auto) 1.6 % (0.0-7.0); Hematocrit 36.9 % (36.0-46.0); Hemoglobin 12.3 g/dL (12.2-16.2); Lymphocytes # (auto) 0.7 10 ^3/uL (0.4-5.4); Lymphocytes % (auto) 9.5 % (10.0-50.0); Mean Corpuscular Hemoglobin 29.8 pg (28.0-32.0); Mean Corpuscular Hgb Conc. 33.5 g/dL (32.0-36.0); Monocytes # (auto) 0.5 10 ^3/uL (0-1.3); Monocytes % (auto) 7.7 % (0.0-12.0); Neutrophils # (auto) 5.7 10 ^3/uL (1.6-8.6); Neutrophils % (auto) 80.9 % (37.0-80.0); Red Blood Cells 4.14 10^6/uL (4.0-5.20); Red Cell Distribution Width 13.5 % (11.8-14.3)
[2023-07-01] MEDS: LEVOTHYROXINE SODIUM 50 MCG TAB PO SCH (06:22)
[2023-07-01] MEDS: ACCU-CHEK COMFORT CURVE STRIP VI SCH ×3 (06:22→17:29)
[2023-07-01 06:38] LABS: Calcium 9.5 mg/dL (8.7-10.4); Chloride 104 mmol/L (98-107); Potassium 3.3 mmol/L (3.5-5.1); Sodium 139 mmol/L (136-145)
[2023-07-01 06:39] LABS: Anion Gap 7.8 (5-15); Carbon Dioxide 27.2 mmol/L (20-30)
[2023-07-01 06:44] LABS: Blood Urea Nitrogen 14 mg/dL (9-23); Glucose 108 mg/dL (74-106)
[2023-07-01 08:00] VITALS: BP 180/91; PULSE 59; PULSE 62; RESP 17; TEMP 98; O2SAT 94; O2SAT 98
[2023-07-01] MEDS: SERTRALINE HCL 50 MG TAB PO SCH (08:41)
[2023-07-01] MEDS: cefTRIAXone 1GM/50ML D5W 50 ML IV SCH (08:41)
[2023-07-01] MEDS: ASPirin-EC 81 mg tab PO SCH (08:41)
[2023-07-01] MEDS: ENOXAPARIN SOD 40 MG/0.4 ML SYRINGE SC SCH (08:41)
[2023-07-01] MEDS: busPIRone HCL 10 MG TAB PO SCH ×2 (08:42→21:21)
[2023-07-01] MEDS: CHOLECALCIFEROL (VITD3) 2,000 UNIT CAP/TAB PO SCH (08:42)
[2023-07-01] MEDS: CLOPIDOGREL BISULFATE 75 MG TAB PO SCH (08:42)
[2023-07-01] MEDS: FUROSEMIDE 40 MG TAB PO SCH (08:42)
[2023-07-01] MEDS: LISINOPRIL 5 MG TAB PO SCH (08:43)
[2023-07-01] MEDS: hydrALAZINE HCL 20 MG/ML VL IV PRN ×2 (12:07→22:33)
[2023-07-01 12:47] VITALS: BP 165/79; PULSE 71; RESP 17; TEMP 97.8; O2SAT 99
[2023-07-01 16:00] VITALS: BP 163/81; PULSE 55; RESP 18; TEMP 97.1; O2SAT 98
[2023-07-01 16:32] VITALS: BP 163/81; PULSE 55; RESP 18; TEMP 97.1; O2SAT 98
[2023-07-01] MEDS: HYDROcodone-ACET 5/325MG TAB PO PRN (17:29)
[2023-07-01] MEDS: ATORVASTATIN 20 MG TAB PO SCH (17:29)
[2023-07-01 20:00] VITALS: PULSE 64; PULSE 68; RESP 19; O2SAT 95
[2023-07-01] MEDS: FAMOTIDINE 20 MG TAB PO SCH (21:20)
[2023-07-02] VITALS (8 sets, daily range): BP systolic 138–172; BP diastolic 61–76; PULSE 62–84; RESP 16–22; TEMP 97.5–98.9; O2SAT 93–98
[2023-07-02] MEDS: ACCU-CHEK COMFORT CURVE STRIP VI SCH ×4 (00:13→17:03)
[2023-07-02] MEDS: LEVOTHYROXINE SODIUM 50 MCG TAB PO SCH (05:46)
[2023-07-02] MEDS: InsuLIN REG 1unit/0.01ml Soln (100units/ml) SC SCH ×4 (05:47→17:04)
[2023-07-02] MEDS: FUROSEMIDE 40 MG TAB PO SCH (08:05)
[2023-07-02] MEDS: ASPirin-EC 81 mg tab PO SCH (08:05)
[2023-07-02] MEDS: ENOXAPARIN SOD 40 MG/0.4 ML SYRINGE SC SCH (08:05)
[2023-07-02] MEDS: LISINOPRIL 5 MG TAB PO SCH (08:06)
[2023-07-02] MEDS: SERTRALINE HCL 50 MG TAB PO SCH (08:06)
[2023-07-02] MEDS: CHOLECALCIFEROL (VITD3) 2,000 UNIT CAP/TAB PO SCH (08:06)
[2023-07-02] MEDS: cefTRIAXone 1GM/50ML D5W 50 ML IV SCH (08:06)
[2023-07-02] MEDS: CLOPIDOGREL BISULFATE 75 MG TAB PO SCH (08:06)
[2023-07-02] MEDS: busPIRone HCL 10 MG TAB PO SCH ×2 (08:06→22:32)
[2023-07-02] MEDS: ATORVASTATIN 20 MG TAB PO SCH (17:03)
[2023-07-02] MEDS: HYDROcodone-ACET 5/325MG TAB PO PRN (17:09)
[2023-07-02] MEDS: FAMOTIDINE 20 MG TAB PO SCH (22:32)
[2023-07-03] VITALS: BP 150/72; PULSE 74; RESP 18; TEMP 97.8; O2SAT 93
[2023-07-03] MEDS: ACCU-CHEK COMFORT CURVE STRIP VI SCH ×4 (00:31→17:43)
[2023-07-03 04:54] VITALS: BP 145/80; PULSE 68; RESP 19; TEMP 97.7; O2SAT 95
[2023-07-03] MEDS: InsuLIN REG 1unit/0.01ml Soln (100units/ml) SC SCH ×4 (06:00→17:41)
[2023-07-03] MEDS: ACETAMINOPHEN 325 MG TAB PO PRN (06:31)
[2023-07-03] MEDS: LEVOTHYROXINE SODIUM 50 MCG TAB PO SCH (06:55)
[2023-07-03 08:00] VITALS: BP 159/77; PULSE 62; PULSE 67; RESP 14; TEMP 98.6; O2SAT 94
[2023-07-03] MEDS: cefTRIAXone 1GM/50ML D5W 50 ML IV SCH (08:46)
[2023-07-03] MEDS: SERTRALINE HCL 50 MG TAB PO SCH (08:47)
[2023-07-03] MEDS: ENOXAPARIN SOD 40 MG/0.4 ML SYRINGE SC SCH (08:47)
[2023-07-03] MEDS: ASPirin-EC 81 mg tab PO SCH (08:47)
[2023-07-03] MEDS: FUROSEMIDE 40 MG TAB PO SCH (08:48)
[2023-07-03] MEDS: CHOLECALCIFEROL (VITD3) 2,000 UNIT CAP/TAB PO SCH (08:49)
[2023-07-03] MEDS: CLOPIDOGREL BISULFATE 75 MG TAB PO SCH (08:49)
[2023-07-03] MEDS: LISINOPRIL 5 MG TAB PO SCH (08:49)
[2023-07-03] MEDS: busPIRone HCL 10 MG TAB PO SCH (08:49)
[2023-07-03 13:00] VITALS: BP 144/70; PULSE 77; RESP 16; TEMP 97.4; O2SAT 99
[2023-07-03] MEDS ORDERED: LEVO500T91 PO (14:07)
[2023-07-03 15:56] VITALS: BP 159/77
[2023-07-03] MEDS: ATORVASTATIN 20 MG TAB PO SCH (17:42)
== END 2023-07-03 17:00 | disposition home or self-care (01) | DRG 690 ==
LOC: EDSEX 14:22 → EDUNIT# 14:22 → ER 14:22 → EDBD 14:22 → TELE 16:06 → TELE-CENTR 06-30 05:30
PROVIDERS: ADMIT Nurse Practitioner Family; ATTEND Nurse Practitioner
DX: N30.00 Acute cystitis without hematuria (principal); J96.10 Chronic respiratory failure, unspecified whether with hypoxia or hypercapnia; N20.0 Calculus of kidney; K59.00 Constipation, unspecified; I11.0 Hypertensive heart disease with heart failure; I50.9 Heart failure, unspecified; J44.9 Chronic obstructive pulmonary disease, unspecified; E66.01 Morbid (severe) obesity due to excess calories; I25.10 Atherosclerotic heart disease of native coronary artery without angina pectoris; D64.9 Anemia, unspecified; E03.9 Hypothyroidism, unspecified; E11.65 Type 2 diabetes mellitus with hyperglycemia; I48.91 Unspecified atrial fibrillation; Z90.49 Acquired absence of other specified parts of digestive tract; Z68.35 Body mass index [BMI] 35.0-35.9, adult; Z60.2 Problems related to living alone; Z95.5 Presence of coronary angioplasty implant and graft; Z99.81 Dependence on supplemental oxygen
CPT/HCPCS: 36415; 74176; 80048; 80053; 80061; 81001; 82962; 83036; 83605; 83690; 84443; 84484; 85025; 87040; 87086; 93005; 93306; 97110; 97116; 97163; 97530; G0378; J0696; J1815

== ENCOUNTER 2024-07-06 17:33 | Emergency (ER) | payer MEDICARE, MEDICAID ==
[~2024-07-06] VITALS: Ht 160 cm; Wt 113.6 kg
[~2024-07-06 17:33] MED LIST changes: -ALUM-32 PO; -ATO40T PO; +ATOR-507 PO; +ATOR40TA52 PO; +BUSP15TA60 PO; -BUSP5TAB51 PO; -GUAI200T6 PO; +INSU100I52 SC; +LEVO150T10 PO; -LEVO175C2 PO; +LEVO500T91 PO; +MET25T PO; -MULT-1018 PO; -MYC15TP TOP; -NYST150P2 XX; +PANT40T PO
[2024-07-06 17:40] VITALS: BP 134/64; PULSE 106; RESP 16; O2SAT 98
[2024-07-06 19:26] LABS: Basophils # (auto) 0 10 ^3/uL (0-0.2); Basophils % (auto) 0.6 % (0.0-2.0); Eosinophils # (auto) 0.2 10 ^3/uL (0-0.8); Eosinophils % (auto) 2.4 % (0.0-7.0); Hematocrit 37.2 % (36.0-46.0); Hemoglobin 12.3 g/dL (12.2-16.2); Lymphocytes # (auto) 0.9 10 ^3/uL (0.4-5.4); Lymphocytes % (auto) 12.9 % (10.0-50.0); Mean Corpuscular Hemoglobin 28.9 pg (28.0-32.0); Mean Corpuscular Hgb Conc. 33.2 g/dL (32.0-36.0); Mean Corpuscular Volume 87.1 fL (80.0-100.0); Monocytes # (auto) 0.6 10 ^3/uL (0-1.3); Monocytes % (auto) 8.6 % (0.0-12.0); Neutrophils # (auto) 5.5 10 ^3/uL (1.6-8.6); Neutrophils % (auto) 75.5 % (37.0-80.0); Nucleated Red Blood Cells % 0.1 %; Platelet Count (auto) 176 10^3/uL (140-450); Red Blood Cells 4.28 10^6/uL (4.0-5.20); Red Cell Distribution Width 14.4 % (11.8-14.3); White Blood Cell 7.3 10^3/uL (4.4-10.8)
[2024-07-06 19:42] LABS: INR 1.07 (0.9-1.15); Partial Thromboplastin Time 27.7 SEC (24.5-34.5); Prothrombin Time 11.3 sec (9.3-11.8)
[2024-07-06 20:02] LABS: Alanine Aminotransferase 13 U/L (7-40); Alkaline Phosphatase 129 U/L (46-116); Anion Gap 6 (5-15); Aspartate Aminotransferase 18 U/L (13-40); BUN/Creatinine Ratio 17.3 (10.0-20.0); Blood Urea Nitrogen 23 mg/dL (9-23); Calcium 10.1 mg/dL (8.7-10.4); Carbon Dioxide 30 mmol/L (20-30); Chloride 102 mmol/L (98-107); Glucose 117 mg/dL (74-106); Potassium 4.2 mmol/L (3.5-5.1); Sodium 138 mmol/L (136-145)
[2024-07-06 20:03] LABS: Bilirubin, Total 0.6 mg/dL (0.2-1.0); Total Protein 6.9 g/dL (5.7-8.2)
[2024-07-07] MEDS: FUROSEMIDE 40 MG/4 ML VIAL IV ONE (02:52)
== END 2024-07-07 02:53 | disposition home or self-care (01) ==
LOC: EDBD 17:33 → ER 17:33
DX: I11.0 Hypertensive heart disease with heart failure (principal); I50.9 Heart failure, unspecified; R60.0 Localized edema; J44.9 Chronic obstructive pulmonary disease, unspecified; I82.402 Acute embolism and thrombosis of unspecified deep veins of left lower extremity; Z90.49 Acquired absence of other specified parts of digestive tract
CPT/HCPCS: 36415; 71045; 80053; 83880; 84484; 85025; 85610; 85730; 93005; 93971